=== PATIENT | male | born 1980 | race Hispanic/Latino ===

== ENCOUNTER 2017-01-26 14:47 | Emergency (ER) | payer BC ==
[2017-01-26 15:23] VITALS: BMI 46.5
[2017-01-26 15:28] VITALS: TEMP 98.6
--- NOTE | 2017-01-26 16:16 | ED PDOC ---
Arrival/HPI - General Chief Complaint: Lower Extremity Problem/Injury Time Seen by Provider: 01/26/17 15:34 Historian: Patient - History of Present Illness Narrative History of Present Illness (Text): 01/26/17 16:19 A 36 year old male presents to the emergency department complaining of left foot pain after a mechanical fall three days ago. Patient denies any knee pain, ankle pain or any other complaints at this time. Time/Duration: Other (3 days ) Symptom Onset: Sudden Symptom Course: Unchanged Activities at Onset: Rest Associated Symptoms (Text): none Past Medical History - Provider Review Nursing Documentation Reviewed: Yes - Cardiac Hx Cardiac Disorders: No - Pulmonary Hx Respiratory Disorders: No - Neurological Hx Neurological Disorder: No - HEENT Hx HEENT Disorder: No - Renal Hx Renal Disorder: No - Endocrine/Metabolic Hx Endocrine Disorders: No - Hematological/Oncological Hx Blood Disorders: No - Integumentary Hx Dermatological Disorder: No - Musculoskeletal/Rheumatological Hx Musculoskeletal Disorders: No - Gastrointestinal Hx Gastrointestinal Disorders: Yes Hx Gastroesophageal Reflux: Yes - Genitourinary/Gynecological Hx Genitourinary Disorders: No - Psychiatric Hx Psychophysiologic Disorder: Yes Hx Anxiety: Yes Hx Depression: Yes Hx Substance Use: No - Anesthesia Hx Anesthesia: No Hx Anesthesia Reactions: No Family/Social History - Physician Review Nursing Documentation Reviewed: Yes Family/Social History: No Known Family HX Smoking Status: Heavy Smoker > 10 Cigarettes Daily Hx Alcohol Use: Yes Frequency of alcohol use: Socially Hx Substance Use: No Allergies/Home Meds Allergies/Adverse Reactions: Allergies No Known Allergies Allergy (Verified 01/26/17 15:23) Home Medications: Home Meds Medication Instructions Recorded Confirmed Alprazolam [Xanax] 0.5 mg PO PRN PRN 01/26/17 01/26/17 buPROPion [Wellbutrin] 150 mg PO BID 01/26/17 01/26/17 Review of Systems - Physician Review All systems were reviewed & negative as marked: Yes Physical Exam - Physical Exam Narrative Physical Exam (Text): 01/26/17 16:16- Review of Systems Constitutional: Normal. absent: Fatigue, Weight Change, Fevers Eyes: Normal ENT: Normal Respiratory: Normal absent: SOB, Cough, Sputum Cardiovascular: Normal absent: Chest pain, Palpitations, Syncope Gastrointestinal: Normal absent: Abdominal pain, Diarrhea, Nausea, Vomiting Genitourinary: Normal. absent: Dysuria, Frequency, Hematuria Musculoskeletal: left foot pain absent: knee pain, ankle pain, Arthralgias, Back Pain, Neck Pain Skin: Normal Neurological: Normal absent: Focal Weakness Endocrine: Normal Hemo/Lymphatic: Normal Psychiatric: Normal - Physical exam Patient appears age appropriate, speaking full sentences without difficulty - Systems Exam Head: Present: Atraumatic, Normocephalic Pupils: Present: PERRL Extraocular Muscles: Present: EOMI Conjunctiva: Present: Normal Mouth: Present: Moist Mucous Membranes Neck: Present: Normal Range of Motion. No: MIDLINE TENDERNESS, Paraspinal Tenderness Respiratory/Chest: Present: Clear to Auscultation, Good Air Exchange. No: Respiratory Distress, Accessory Muscle Use, Tachypnic Cardiovascular: Present: tachycardic, Peripheral Pulses Present. No: Murmurs Abdomen: Present: Normal Bowel Sounds, No: Tenderness, Peritoneal Signs, Rebound, Guarding, Distention Back: Present: Normal Inspection. No: Midline Tenderness, Paraspinal Tenderness Upper Extremity: Present: Normal Inspection. No: Cyanosis, Edema Lower Extremity: Present: positive pulses, diffuse bruising of left foot, decrease range of motion due to pain, full active and passive range of motion of knee and ankle, neurovascularly intact. Neurological: Present: GCS=15, Speech Normal, cranial nerves II through XII fully intact with no cerebellar abnormality, neuro-sensory fully intact. No focal neurological deficits. Skin: Present: Warm, Dry, Normal Color. No: Rashes Lymphatic: Present: OX3, NI, NC Psychiatric: Present: Alert, Oriented x 3, Normal Insight, Normal Concentration Vital Signs Reviewed: Yes Vital Signs Temp Pulse Resp BP Pulse Ox 01/26/17 18:13 89 18 165/89 H 98 01/26/17 16:34 98 H 18 168/98 H 98 01/26/17 15:27 98.6 F 105 H 20 174/109 H 97 Temperature: Afebrile Blood Pressure: Hypertensive Pulse: Tachycardic Respiratory Rate: Normal Appearance: Positive for: Well-Appearing, Non-Toxic, Comfortable Pain Distress: None Mental Status: Positive for: Alert and Oriented X 3 Medical Decision Making ED Course and Treatment: 01/26/17 16:13 Impression: A 36 year old male after mechanical fall with left foot pain. On physical exam, positive pulses, diffuse bruising of left foot, decrease range of motion due to pain, full active and passive range of motion of knee and ankle, neurovascularly intact. Differential Diagnosis included but are not limited to: sprain vs fracture Plan: -- Radiology of left ankle -- Radiology left foot -- CT lower extremity -- Toradol -- Reassess and disposition Progress Notes: 01/26/17 16:16 Patient is refusing pain medications. 01/26/17 16:48 Xray shows possible lisfranc fx, interpreted by me Case discussed with Dr. Morales in detail. Image sent. He recommended CAT scan, splint and outpatient follow up for reduction and surgery. States no need for immediate surgery due to excessive swelling. 01/26/17 19:04 splint applied distal neurovasc intact crutches and dc instructions provided Pt states he understands to return to the ER right away for new or worsening symptoms or for inability to f/u with PMD or specialist as instructed. Patient states that he fully agrees with and understands discharge instructions. States that he agrees with the plan and disposition. Verbalized and repeated discharge instructions and plan. I have given the patient opportunity to ask any additional questions. - RAD Interpretation Radiology Orders: 01/26/17 15:59 ANKLE LEFT 3 VIEWS ROUTINE [RAD] Stat FOOT LEFT 3 VIEWS ROUTINE [RAD] Stat 01/26/17 16:48 EXT LOWER W/O CONTRAST LEFT [CT] Stat - Medication Orders Current Medication Orders: Discontinued Medications Acetaminophen (Tylenol 325mg Tab) 975 mg PO STAT STA Stop: 01/26/17 16:13 Last Admin: 01/26/17 16:14 Dose: 975 mg Acetaminophen (Tylenol 325mg Tab) Confirm Administered Dose 975 mg .ROUTE .STK- MED ONE Stop: 01/26/17 16:15 Last Admin: 01/26/17 16:24 Dose: Ketorolac Tromethamine (Toradol) 30 mg IM STAT STA Stop: 01/26/17 16:07 Last Admin: 01/26/17 16:12 Dose: Not Given Non-Admin Reason: Patient Refused Ketorolac Tromethamine (Toradol) Confirm Administered Dose 30 mg .ROUTE .STK- MED ONE Stop: 01/26/17 16:09 Last Admin: 01/26/17 16:12 Dose: Not Given Non-Admin Reason: Patient Refused - Scribe Statement The provider has reviewed the documentation as recorded by the Scribe Belqes Irma Provider Ramandeep Attestation: All medical record entries made by the Ramandeep were at my direction and personally dictated by me. I have reviewed the chart and agree that the record accurately reflects my personal performance of the history, physical exam, medical decision making, and the department course for this patient. I have also personally directed, reviewed, and agree with the discharge instructions and disposition. Disposition/Present on Arrival - Present on Arrival Any Indicators Present on Arrival: No History of DVT/PE: No History of Uncontrolled Diabetes: No Urinary Catheter: No History of Decub. Ulcer: No History Surgical Site Infection Following: None - Disposition Have Diagnosis and Disposition been Completed?: Yes Diagnosis: Foot fracture Disposition: HOME/ ROUTINE Disposition Time: 16:48 Patient Plan: Discharge Condition: GOOD Discharge Instructions (ExitCare): Foot Fracture in Adults (ED) Additional Instructions: Please schedule an appointment with an health communications specialist in the next 48 hours. PLEASE RETURN TO THE EMERGENCY DEPARTMENT FOR NEW OR WORSENING SYMPTOMS. RETURN RIGHT AWAY IF YOU CANNOT FOLLOW UP WITH YOUR PRIMARY CARE DOCTOR, CLINIC, OR SPECIALIST IN 1-2 DAYS. Prescriptions: oxyCODONE/Acetaminophen [Percocet 5/325 mg Tab] 1 ea PO BID PRN #6 tab PRN Reason: Pain, Moderate (4-7) Referrals: PCP,NO [Primary Care Provider] - Follow up with primary Sonido Morales DO [Staff Provider] - Follow up with primary
[2017-01-26 16:34] VITALS: RESP 18; O2SAT 98
--- NOTE | 2017-01-26 17:34 | RAD ---
PROCEDURE: Left Foot Radiographs. HISTORY: fx COMPARISON: None. FINDINGS: BONES: There is no acute displaced fracture or bone destruction. There is increased distance between 1st and 2nd metatarsals with mild lateral displacement of the base of the 2nd metatarsal in relation to the middle cuneiform. JOINTS: The joint spaces are preserved. SOFT TISSUES: Normal. OTHER FINDINGS: None. IMPRESSION: No acute displaced fracture. LisFranc injury.
--- NOTE | 2017-01-26 17:36 | RAD ---
PROCEDURE: Left Ankle Radiographs. HISTORY: fx COMPARISON: None FINDINGS: BONES: There is a small ossific density inferior to the medial malleolus. JOINTS: Normal. Ankle mortise maintained. Talar dome intact mild degenerative osteoarthrosis at the tibiotalar joint. Prominent dorsal calcaneal enthesophyte. Also noted is a fairly prominent Stieda process. SOFT TISSUES: Normal. OTHER FINDINGS: There is mild left medial soft tissue swelling. IMPRESSION: Small ossific density inferior to the medial malleolus could represent an acute fracture or accessory ossification center. Please correlate with point tenderness.
[2017-01-26 18:14] VITALS: BP 165/89; PULSE 89
--- NOTE | 2017-01-27 08:53 | CT ---
PROCEDURE: CT left foot HISTORY: foot COMPARISON: Not available TECHNIQUE: 1.25 mm contiguous axial sections were acquired through the left foot. Sagittal and coronal images were reformatted from the axial scan. FINDINGS: There is a Lisfranc ligamentous disruption. There is dorsal and lateral displacement of the base of the 2nd metatarsal relative to the middle cuneiform. There are small avulsion fractures seen at the tarsometatarsal articulations, 2 through 4. There is probable small avulsion fracture of the distal lateral aspect of the cuboid. Small fracture fragments are at both the dorsal and plantar aspect of the tarsal-metatarsal articulation. There is a small avulsion fracture of the plantar base of the 4th metatarsal. There is a small cortical avulsion of the dorsal aspect of the navicular. This is minimally displaced. Incidentally noted is osteoarthritis of the posterior talocalcaneal articulation. There is soft tissue swelling noted predominantly over the dorsal aspect of the foot, most pronounced at the level of the base of the metatarsals. IMPRESSION: Lisfranc ligamentous disruption with multiple small avulsion fractures about the tarsal-metatarsal articulations 2 through 4. Dorsal/lateral displacement of the base of the 2nd metatarsal. Osteoarthritis of posterior talocalcaneal articulation. It Small cortical avulsion, minimally displaced, dorsal aspect of the navicular. Preliminary interpretation of this examination was reported by [facility] at 7:30 p.m. on 01/26/2017. There is concurrence of this report with the preliminary interpretation.
== END 2017-01-26 19:40 | disposition home or self-care (01) ==
LOC: ED 14:47
DX: S92.902A Unspecified fracture of left foot, initial encounter for closed fracture (principal); W01.0XXA Fall on same level from slipping, tripping and stumbling without subsequent striking against object, initial encounter; Y93.89 Activity, other specified; Y92.89 Other specified places as the place of occurrence of the external cause

== ENCOUNTER 2018-09-15 07:07 | Inpatient (IN) | payer BC ==
[2018-09-15 07:13] VITALS: BMI 45.0
[2018-09-15] MEDS ORDERED: Sodium Chloride 0.9% 1,000 ML IV SCH (07:45)
--- NOTE | 2018-09-15 07:55 | ED PDOC ---
Arrival/HPI - General Chief Complaint: Chest Pain Time Seen by Provider: 09/15/18 07:30 Historian: Patient - History of Present Illness Narrative History of Present Illness (Text): 09/15/18 07:30 38 year old male, smoker, with past medical history of hypertension, hyperlipidemia and past surgical history of foot surgery, presents to the ED for evaluation of intermittent right sided chest pain since 1 week. Patient describes a pressure-like throbbing sensation radiating to his right lateral chest wall, on which he sleeps on. Patient informs improvement of symptoms with Advil but denies taking any today. As per patient, his last episode was 2 hours ago, which spontaneously resolved. Patient denies any inducing factors for the pain and states that pain does not always exacerbate with deep inspirations. Patient denies any other associated somatic complaints. Patient denies any fevers, chills, headache, dizziness, shortness of breath, dyspnea on exertion, cough, abdominal pain, nausea, vomiting, diarrhea, back pain, neck pain, or any other complaints. PMD: Dr. Mathews Time/Duration: 1 week Symptom Onset: Gradual Symptom Course: Intermittent Quality: Pressure Activities at Onset: Light Context: Home Past Medical History - Provider Review Nursing Documentation Reviewed: Yes - Cardiac Hx Cardiac Disorders: Yes Hx Hypertension: Yes - Pulmonary Hx Respiratory Disorders: Yes Hx Asthma: Yes - Neurological Hx Neurological Disorder: No - HEENT Hx HEENT Disorder: No - Renal Hx Renal Disorder: No - Endocrine/Metabolic Hx Endocrine Disorders: No - Hematological/Oncological Hx Blood Disorders: No - Integumentary Hx Dermatological Disorder: No - Musculoskeletal/Rheumatological Hx Musculoskeletal Disorders: No - Gastrointestinal Hx Gastrointestinal Disorders: Yes Hx Gastroesophageal Reflux: Yes - Genitourinary/Gynecological Hx Genitourinary Disorders: No - Psychiatric Hx Psychophysiologic Disorder: Yes Hx Anxiety: Yes Hx Substance Use: No - Anesthesia Hx Anesthesia: No Family/Social History - Physician Review Nursing Documentation Reviewed: Yes Family/Social History: Unknown Family HX Smoking Status: Heavy Smoker > 10 Cigarettes Daily Hx Alcohol Use: Yes Hx Substance Use: No Allergies/Home Meds Allergies/Adverse Reactions: Allergies No Known Allergies Allergy (Verified 01/26/17 15:23) Home Medications: Home Meds Medication Instructions Recorded Confirmed Alprazolam [Xanax] 0.5 mg PO PRN PRN 01/26/17 09/15/18 Furosemide [Lasix] 20 mg PO DAILY 09/15/18 09/15/18 Losartan [Cozaar] 25 mg PO DAILY 09/15/18 09/15/18 Metoprolol Succinate XL [Toprol XL] 200 mg PO DAILY 09/15/18 09/15/18 Tamsulosin [Flomax] 0.4 mg PO DAILY 09/15/18 09/15/18 Tolterodine [Detrol LA] 2 mg PO DAILY 09/15/18 09/15/18 amLODIPine [Norvasc] 1 mg PO DAILY 09/15/18 09/15/18 Review of Systems - Physician Review All systems were reviewed & negative as marked: Yes - Review of Systems Constitutional: absent: Fevers Respiratory: absent: SOB Cardiovascular: Chest Pain Gastrointestinal: absent: Abdominal Pain, Diarrhea, Nausea, Vomiting Genitourinary Male: absent: Dysuria Musculoskeletal: absent: Back Pain, Neck Pain Skin: absent: Rash Neurological: absent: Headache, Dizziness Psychiatric: absent: Anxiety Physical Exam Vital Signs Reviewed: Yes Vital Signs Temp Pulse Resp BP Pulse Ox 09/15/18 07:23 97.9 F 110 H 18 163/102 H 97 09/15/18 07:20 97.9 F 110 H 18 163/102 H 97 Temperature: Afebrile Blood Pressure: Hypertensive Pulse: Tachycardic Respiratory Rate: Normal Appearance: Positive for: Well-Appearing, Non-Toxic, Comfortable Pain Distress: None Mental Status: Positive for: Alert and Oriented X 3 - Systems Exam Head: Present: Atraumatic, Normocephalic Pupils: Present: PERRL Extroacular Muscles: Present: EOMI Conjunctiva: Present: Normal Mouth: Present: Moist Mucous Membranes Neck: Present: Normal Range of Motion Respiratory/Chest: Present: Clear to Auscultation, Good Air Exchange. No: Respiratory Distress, Accessory Muscle Use Cardiovascular: Present: Regular Rate and Rhythm, Normal S1, S2. No: Murmurs Abdomen: No: Tenderness, Distention, Peritoneal Signs Back: Present: Normal Inspection Upper Extremity: Present: Normal Inspection. No: Cyanosis, Edema Lower Extremity: Present: Normal Inspection. No: Edema Neurological: Present: GCS=15, CN II-XII Intact, Speech Normal Skin: Present: Warm, Dry, Normal Color. No: Rashes Psychiatric: Present: Alert, Oriented x 3, Normal Insight, Normal Concentration Medical Decision Making ED Course and Treatment: 09/15/18 07:31 Impression: 38 year old male presents to the ED for evaluation of chest pain since 1 week. Non pleuritic chest pain. Afebrile. No friction run or JVD noted on exam. No hx of weakness. No cough, fever, chills or night sweats. No midscapular pain. No abdominal pain. No fall or trauma. No GI or complaints. Pending imaging and labs. No current pain. WELLS: Low pretest Cannot perc out given HR, will Dimer HEART score: Age: 0 RF: 2 Story: 0 Tropp: pend EK Plan: -- EKG -- Labs -- CT Chest -- IV Fluids -- Reassess and disposition Prior Visits: Notes and results from previous visits were reviewed. Progress Notes: 09/15/18 07:20 EKG reviewed, shows sinus tachycardia at 104 bpm, No STEMI. 09/15/18 09:57 CT Chest reviewed by radiologist, shows: Unremarkable CT pulmonary angiogram. No pulmonary embolus. Moderate size right pleural effusion 09/15/18 10:53 Appreciate consult w/ Dr. Rivers: accepts to his service, requesting consult w/ Dr. Elliott and Dr. Moy Rodriguez. Pt in NAD, no respiratory distress, agreeable to plan. - RAD Interpretation Radiology Orders: 09/15/18 07:31 CHEST TWO VIEWS (PA/LAT) [RAD] Stat Back Tender: Radiologist - Medication Orders Current Medication Orders: Sodium Chloride (Sodium Chloride 0.9%) 1,000 mls @ 100 mls/hr IV .Q10H DOUG - Scribe Statement The provider has reviewed the documentation as recorded by the Scribzeynep Faulkner. All medical record entries made by the Emeterioibe were at my direction and personally dictated by me. I have reviewed the chart and agree that the record accurately reflects my personal performance of the history, physical exam, medical decision making, and the department course for this patient. I have also personally directed, reviewed, and agree with the discharge instructions and disposition. Disposition/Present on Arrival - Present on Arrival Any Indicators Present on Arrival: No History of DVT/PE: No History of Uncontrolled Diabetes: No Urinary Catheter: No History of Decub. Ulcer: No History Surgical Site Infection Following: None - Disposition Have Diagnosis and Disposition been Completed?: No Diagnosis: Moderate sized pleural effusion Disposition Time: 10:54 Patient Problems: Current Active Problems Problem Status Onset Moderate sized pleural effusion Acute Condition: STABLE Forms: [employer] (Tuvaluan)
[2018-09-15 08:22] LABS: BASO # 0.03 K/mm3 (0.0-2.0); BASO % 0.2 % (0.0-3.0); EOS # 0.6 (0.0-0.7); EOS % 4.7 % (1.5-5.0); LYMPH # 2.4 (1.2-3.4); LYMPH % 18.6 % (22.0-35.0); MEAN CELL VOLUME 84.7 fl (80.0-105.0); MEAN CORPUSCULAR HGB CONC 34.2 g/dl (31.0-37.0); MEAN PLATELET VOLUME 8.6 fl (7.0-11.0); MONO % 7.6 % (1.0-6.0); RBC 5.17 10^6/uL (3.5-6.1); RED CELL DISTRIBUTION WIDTH 13.7 % (11.5-14.5); WHITE BLOOD COUNT 12.7 10^3/uL (4.5-11.0)
[2018-09-15 08:28] LABS: ALB/GLOB RATIO 1.2 (1.1-1.8); ALBUMIN 4.4 g/dL (3.0-4.8); ALT/SGPT 21 U/L (7-56); AST/SGOT 25 U/L (17-59); BLOOD UREA NITROGEN 11 mg/dL (7-21); CALCIUM 9.9 mg/dL (8.4-10.5); GFR NON-AFRICAN AMERICAN > 60
[2018-09-15 08:39] LABS: TROPONIN I < 0.01 ng/mL
[2018-09-15] MEDS ORDERED: Iohexol 350 MG/100 ML VIAL ONE (08:50)
--- NOTE | 2018-09-15 09:55 | CT ---
Date of service: 09/15/2018 PROCEDURE: CT Chest with contrast (Pulmonary Angiogram) HISTORY: chest, pain elevated dimer COMPARISON: None available. TECHNIQUE: Axial computed tomography images were obtained of the chest in the pulmonary arterial phase of enhancement. Coronal and sagittal reformatted images were created and reviewed. Intravenous contrast dose: 100 cc of Omni 350 Radiation dose: Total exam DLP = 569.78 mGy-cm. This CT exam was performed using one or more of the following dose reduction techniques: Automated exposure control, adjustment of the mA and/or kV according to patient size, and/or use of iterative reconstruction technique. FINDINGS: PULMONARY ARTERIES: Unremarkable. No pulmonary embolism. AORTA: No acute findings. No thoracic aortic aneurysm. No aortic atherosclerotic calcification or mural plaque present. LUNGS: Unremarkable. No nodule, mass or pulmonary consolidation. PLEURAL SPACES: Moderate size right pleural effusion HEART: Unremarkable. No cardiomegaly. No significant pericardial effusion. LYMPH NODES: No lymphadenopathy. BONES, CHEST WALL: Unremarkable. No fracture or destructive lesion OTHER FINDINGS: Unremarkable. IMPRESSION: Unremarkable CT pulmonary angiogram. No pulmonary embolus. Moderate size right pleural effusion
[2018-09-15] MEDS ORDERED: Influenza Vaccine 60 mcg/0.5 mL SYR (4YR UP) IM ONE (14:24)
[2018-09-15] MEDS ORDERED: Pneumococcal 23-Valent Vaccine IM ONE (14:24)
[2018-09-15] MEDS ORDERED: Cefepime (Maxipime) 1 g Inj IVPB SCH (14:45)
--- NOTE | 2018-09-15 15:40 | US ---
HISTORY: Leg pain and swelling. Evaluate for DVT PHYSICIAN(S): Moy Rodriguez MD. TECHNIQUE: Duplex sonography and color-flow Doppler with graded compression were used to evaluate the deep venous systems of both lower extremities. FINDINGS: The visualized deep venous systems of both lower extremities are sonographically normal and compressible. Normal wave forms and augmentation are seen. There is no sonographic evidence for deep venous thrombosis in the visualized segments of both lower extremities. IMPRESSION: No sonographic evidence for deep venous thrombosis in the visualized segments of both lower extremities.
--- NOTE | 2018-09-15 16:06 | CARD ---
APPROVED REPORT Date of service: 09/15/2018 EKG Measurement Heart [id number] <Conclusion> Sinus tachycardia Otherwise normal ECG
[2018-09-15] MEDS: Budesonide 0.25 mg/2 ml Inhal Susp UD IH SCH (19:55)
[2018-09-15] MEDS: Arformoterol 15 mcg/2 ml Inh Sol IH SCH (19:55)
[2018-09-15] MEDS ORDERED: Potassium Chloride 20 mEq ER Tab PO ONE (20:06)
[2018-09-15] MEDS: Cefepime 1gm in NS 100ml 1 GM/100 ML BAG IVPB SCH (21:51)
--- NOTE | 2018-09-15 22:09 | HP ---
DATE OF EXAM: 09/15/2018 CHIEF COMPLAINT: The patient came in because of chest pain and dyspnea. HISTORY OF PRESENT ILLNESS: A 38-year-old with history of hypertension, high cholesterol, morbid obesity, came in with chest pain that has been intermittently and now also dyspnea more when he sleeps on his right side at night. He cannot sleep on his right side because of that. The patient was seen in ER at [facility] for acute upper respiratory infections, who gave him two rounds of antibiotics over the course of 2 to 3 weeks, however, his pain, coughing, and then residual pain and dyspnea was still there. He came into the hospital for evaluation and had been seen by emergency room physicians. Following that, he has initial evaluation for CT angiogram with apart from right pleural effusions and no pulmonary embolism. The patient denied any fever, any chills, any nausea, any vomiting, or any dizziness. The patient is heavy smoker, he smokes 2 packs a day. PAST MEDICAL HISTORY: As I mentioned, hypertension, he does have prostate problem. He does have chronic intermittent anxiety and obesity. SOCIAL HISTORY: The patient as I mentioned is heavy smoker, smokes 2 packs a day. No alcohol. No drugs. FAMILY HISTORY: Noncontributory. His grandmother maybe, grand father or grand parents, one of them has lung cancer. PHYSICAL EXAMINATION GENERAL: The patient sitting in emergency room, seems a little bit anxious and does not seem to be in any respiratory distress. VITAL SIGNS: Temperature is 97.8, heart rate is 82, blood pressure was 152/92, respirations 14, saturating 95% on room air. HEAD AND NECK: Normal. No JVD. No thyromegaly. CHEST: There is diminished breath sound on the right lung. Left lung is normal. CARDIAC: First sounds and second sounds normal. ABDOMEN: Obese, nontender. EXTREMITIES: There is no edema. NEUROLOGIC: Normal. LABORATORY DATA: CT angio shows moderate sized right pleural effusions, no pulmonary embolism. Chemistry; sodium 140, potassium 3.5, chloride 102, bicarb 31, BUN 11, creatinine 0.6. Liver function test is normal. Troponin is negative. BNP is 108. CBC; white count 12.7, hemoglobin 15, hematocrit 43.8, platelet 320. The patient has D-dimer 531. IMPRESSION: This is a 38-year-old male who came in with dyspnea, chest pain right sided, found to have moderate right side pleural effusions, because of history of infection over the course of 2 to 3 weeks with antibiotics. 1. Possibility etiology of right pleural effusions could be parapneumonic pleural effusions, however, having history of smoking we will rule out any underlying malignancy, tapping of his fluid will be helpful in the differential diagnosis. We will admit the patient for observation. We will get pulmonary consult Dr. Elliott, intervention radiology Dr. Moy Rodriguez, and we will also get cardiology Dr. Landry. We will follow up their recommendations. Discussed with the patient in detail. 2. Hypertension. 3. Chronic anxiety. 4. Morbid obesity. PLAN: We will continue and resume all his meds. We replace his potassium and hold off on Lasix. His BNP is normal. We will resume his beta roberto. He received it today, so we will start next day, tomorrow. He does take Toprol-XL 200 mg once a day. I did review the medication with the patient. Matthew Rivers MD
--- NOTE | 2018-09-15 22:22 | CON ---
DATE OF CONSULTATION: 09/15/2018 REFERRING PHYSICIAN: Matthew Rivers MD REASON FOR CONSULTATION: Right-sided pleuritic pain, found to have pleural effusion. HISTORY OF PRESENT ILLNESS: This is a 38-year-old gentleman without any significant past medical history, who is an active smoker. From the last couple of weeks, he has been having URI symptoms, cough and shortness of breath. He has seen his PMD and has been treated as an outpatient with antibiotics. Overnight, he has been having right-sided pleuritic pain, some shortness of breath and cough, came into ER. No hemoptysis, hematemesis, or hematuria. No diarrhea, leg pain or leg swelling. PAST MEDICAL HISTORY: Chronic obstructive lung disease, history of GERD, anxiety disorder. FAMILY HISTORY: No significant cardiopulmonary disease reported. SOCIAL HISTORY: He is an active smoker. Denies any alcohol use. MEDICATIONS: As the outpatient, he had been on Xanax, Lasix, Cozaar, Toprol XL, Flomax, Detrol, Norvasc. ALLERGIES: NONE KNOWN. REVIEW OF SYSTEMS: No headache. Has some rhinitis, right-sided pleuritic pain, short of breath. No nausea, vomiting or diarrhea. No leg pain or leg swelling. Admits to have loud snoring at nighttime, daytime sleepiness. OBJECTIVE: VITAL SIGNS: Temperature is 98, heart rate 76, respiratory rate is 18, blood pressure 157/92, pulse ox 95% on room air. HEENT: Moist mucous membranes. Crowded airway. Mallampati score is 4. NECK: Supple. No JVD. LUNGS: Decreased breath sounds bilaterally. Scattered rhonchi. HEART: S1 and S2. ABDOMEN: Soft, nontender, no organomegaly. EXTREMITIES: Not much edema. NEUROLOGIC: Awake and alert. Follows simple commands. LABORATORY DATA: Hemoglobin 15.0, hematocrit 43.8, WBC 12.7, platelets 320,000. D-dimer was 531. Sodium 140, potassium 3.5, chloride 102, bicarbonate 31, BUN is 11, creatinine 0.6, calcium 9.9. Total bili 0.4, AST 25, ALT 21, alk phos is 91. Troponin less than 0.01. Albumin is 4.4. Has a CT of chest done, which shows no pulmonary embolism, moderate size right pleural effusion. IMPRESSION AND PLAN: Right pleural effusion, probably partially treated pneumonia as outpatient, history of hypertension, may have chronic obstructive lung disease. Case discussed with Dr. Rivers. We will place the patient on cefepime. Sleep apnea precautions. Gastric and DVT prophylaxis. Interventional radiologist consulted for thoracentesis, diagnostic and therapeutic purposes. May need a repeat CAT scan after thoracentesis to assure there is nothing hiding behind the pleural effusion like lung nodule. The patient is asked to stop smoking. We will place him on Nicoderm patch. Add inhaled bronchodilator. We will also do venous Doppler of the lower extremities, echocardiogram. Need to lose weight. Outpatient PFT and sleep study. Thank you and we will follow with you. Sunni Elliott MD
[2018-09-16] MEDS: Cefepime 1gm in NS 100ml 1 GM/100 ML BAG IVPB SCH ×3 (05:58→22:33)
[2018-09-16] MEDS: Budesonide 0.25 mg/2 ml Inhal Susp UD IH SCH ×2 (07:51→20:00)
[2018-09-16] MEDS: Arformoterol 15 mcg/2 ml Inh Sol IH SCH ×2 (07:51→20:00)
--- NOTE | 2018-09-16 08:11 | CP.PCM.CON ---
History of Present Illness - History of Present Illness History of Present Illness: Awake, alert, slight shortness of breath on exertion Reason for consultation: Cardiac evaluation of shortness of breath Brief history of present illness: A 38 year old male morbidly obese who came in to the ER due to shortness of breath and right sided intermittent chest pressure especially when lying on the right side. He was seen by PMD a few days ago due to shortness of breath and upper respiratory infection was given antibiotics. Shortness of breath was not resolved after completing antibiotics. Right sided chest pressure relieved with Advil. He was also claimimg that he was referred to a [facility] due to abnormal EKG and was supposed to have a stress test this weekend. History of hypertension, hyperlipidemia,GERD, anxiety, COPD, past surgical history of foot surgery, currently smokes 2 packs per day, Denies alcoh ol abuse. Seen and examined by me and Dr. Lnadry Review of Systems - Review of Systems All systems: reviewed and no additional remarkable complaints except Review of Systems: as per HPI Past Patient History - Past Social History Smoking Status: Never Smoked - CARDIAC Hx Cardiac Disorders: Yes Hx Hypertension: Yes - PULMONARY Hx Respiratory Disorders: Yes Hx Asthma: Yes - NEUROLOGICAL Hx Neurological Disorder: No - HEENT Hx HEENT Problems: No - RENAL Hx Chronic Kidney Disease: No - ENDOCRINE/METABOLIC Hx Endocrine Disorders: No - HEMATOLOGICAL/ONCOLOGICAL Hx Blood Disorders: No - INTEGUMENTARY Hx Dermatological Problems: No - MUSCULOSKELETAL/RHEUMATOLOGICAL Hx Musculoskeletal Disorders: Yes Hx Falls: Yes Hx Fractures: Yes (FX LEFT FOOT) - GASTROINTESTINAL Hx Gastrointestinal Disorders: Yes Hx Gastroesophageal Reflux: Yes - GENITOURINARY/GYNECOLOGICAL Hx Genitourinary Disorders: No - PSYCHIATRIC Hx Psychophysiologic Disorder: Yes (SMOKES MARIJUANA,OBESITY) Hx Anxiety: Yes Hx Substance Use: No - SURGICAL HISTORY Hx Surgeries: Yes (FRACTURED L FOOT.) - ANESTHESIA Hx Anesthesia: No Meds Allergies/Adverse Reactions: Allergies Allergy/AdvReac Type Severity Reaction Status Date / Time No Known Allergies Allergy Verified 09/15/18 12:05 - Medications Medications: Current Medications Arformoterol Tartrate (Brovana) 15 mcg IH [id number] [facility] Last Admin: 09/16/18 07:51 Dose: 15 mcg Budesonide (Pulmicort Respules) 0.25 mg IH [id number] [facility] Last Admin: 09/16/18 07:51 Dose: 0.25 mg Cefepime HCl (Maxipime 1gm) 1 gm in 100 mls @ 100 mls/hr IVPB Q8 [facility] Last Admin: 09/16/18 05:58 Dose: 100 mls/hr Losartan Potassium (Cozaar) 25 mg PO DAILY [facility] Metoprolol Succinate (Toprol Xl) 200 mg PO DAILY [facility] Nicotine (Nicoderm Cq) 1 patch TD DAILY [facility] Last Admin: 09/15/18 13:50 Dose: 1 patch Pantoprazole Sodium (Protonix Ec Tab) 40 mg PO DAILY [facility] Tolterodine Tartrate (Detrol La) 2 mg PO DAILY [facility] Physical Exam - Constitutional Appears: Non-toxic, No Acute Distress - Head Exam Head Exam: NORMAL INSPECTION, NORMOCEPHALIC - Eye Exam Eye Exam: Normal appearance Pupil Exam: NORMAL ACCOMODATION - ENT Exam ENT Exam: Mucous Membranes Moist - Respiratory Exam Respiratory Exam: Decreased Breath Sounds, NORMAL BREATHING PATTERN - Cardiovascular Exam Cardiovascular Exam: +S1, +S2 - GI/Abdominal Exam GI & Abdominal Exam: Normal Bowel Sounds, Soft - Extremities Exam Extremities exam: Positive for: full ROM - Neurological Exam Neurological exam: Alert, Oriented x3 - Psychiatric Exam Psychiatric exam: Normal Affect, Normal Mood - Skin Skin Exam: Dry, Normal Color, Warm Results - Vital Signs Recent Vital Signs: Last Vital Signs Temp 98.3 F 09/15/18 23:18 Pulse 86 09/16/18 06:47 Resp 20 09/15/18 23:18 BP 190/102 H 09/16/18 06:47 Pulse Ox 97 09/15/18 23:18 - Labs Result Diagrams: 09/15/18 08:05 09/15/18 08:05 Labs: Laboratory Results - last 24 hr 09/15/18 09/15/18 09/15/18 08:05 08:05 08:05 WBC 12.7 H RBC 5.17 Hgb 15.0 Hct 43.8 MCV 84.7 MCH 29.0 MCHC 34.2 RDW 13.7 Plt Count 320 MPV 8.6 Neut % (Auto) 68.9 H Lymph % (Auto) 18.6 L Clinch % (Auto) 7.6 H Eos % (Auto) 4.7 Baso % (Auto) 0.2 Lymph # (Auto) 2.4 Clinch # (Auto) 1.0 H Eos # (Auto) 0.6 Baso # (Auto) 0.03 Absolute Neuts (auto) 8.76 H D-Dimer, Quantitative 531 H Sodium 140 Potassium 3.5 L Chloride 102 Carbon Dioxide 31 Anion Gap 12 BUN 11 Creatinine 0.6 L Est GFR ( Amer) > 60 Est GFR (Non-Af Amer) > 60 Random Glucose 108 Calcium 9.9 Total Bilirubin 0.4 AST 25 ALT 21 Alkaline Phosphatase 91 Troponin I < 0.01 NT-Pro-B Natriuret Pep Total Protein 8.0 Albumin 4.4 Globulin 3.5 Albumin/Globulin Ratio 1.2 Procalcitonin 09/15/18 09/15/18 08:05 08:05 WBC RBC Hgb Hct MCV MCH MCHC RDW Plt Count MPV Neut % (Auto) Lymph % (Auto) Clinch % (Auto) Eos % (Auto) Baso % (Auto) Lymph # (Auto) Clinch # (Auto) Eos # (Auto) Baso # (Auto) Absolute Neuts (auto) D-Dimer, Quantitative Sodium Potassium Chloride Carbon Dioxide Anion Gap BUN Creatinine Est GFR ( Amer) Est GFR (Non-Af Amer) Random Glucose Calcium Total Bilirubin AST ALT Alkaline Phosphatase Troponin I NT-Pro-B Natriuret Pep 108 Total Protein Albumin Globulin Albumin/Globulin Ratio Procalcitonin < 0.05 L Assessment & Plan - Assessment and Plan (Free Text) Assessment: A 38 year old male morbidly obese who came in to the ER due to shortness of breath and right sided intermittent chest pressure especially when lying on the right side. He was seen by PMD a few days ago due to shortness of breath and upper respiratory infection was given antibiotics. Shortness of breath was not resolved after completing antibiotics. Right sided chest pressure relieved with Advil. He was also claimimg that he was referred to a [facility] due to abnormal EKG and was supposed to have a stress test this weekend. History of hypertension, hyperlipidemia,GERD, anxiety, COPD, past surgical history of foot surgery, currently smokes 2 packs per day, Denies alcohol abuse. Right pleuritic pain due to moderate pleural effusion from CT scan. EKG showed sinus tachycardia, normal,no ischemia, Normal troponin and BNP. US of lower extremities negative for DVT. Rule out acute coronary syndrome. Will order echo to evaluate LV function. For stress test tomorrow. No cardiac work up done at [facility]. Uncontrolled blood pressure. Plan: No distress, shortness of breath on exertion, right sided chest discomfort Uncontrolled blood pressure Hydralazine IV 10 mg given For echo today For Stress test in AM NPO post midnight Heart rate controlled On Cozaar 25 mg Daily,Toprol 200 mg daily, Nicoderm patch daily Detrol LA 2 mg daily Continue current medications Continue current treatment Pulmonary on consult TSH,lipid panel and HgbA1c LIfestyle modification Weight reduction Smoking cessation, on Nicotine patch Will follow up Plan and treatment discussed with Dr. Landry Thank you Dr. Rivers for the opportunity of taking care of Alexandre Bansal - Date & Time Date: 09/16/18 Time: 06:50
[2018-09-16] MEDS: Tolterodine 2 mg ER Cap PO SCH (10:25)
[2018-09-16] MEDS: Metoprolol Succinate 100 mg XL Tab PO SCH (10:26)
[2018-09-16] MEDS: Pantoprazole 40 mg EC Tab PO SCH (10:26)
[2018-09-16 11:29] LABS: BLOOD UREA NITROGEN 11 mg/dL (7-21); CALCIUM 9.6 mg/dL (8.4-10.5); GFR NON-AFRICAN AMERICAN > 60; INR 1.21; PARTIAL THROMBOPLASTIN TIME 41.9 Seconds (26.9-38.3); PROTHROMBIN TIME 13.7 SECONDS (9.4-12.5)
--- NOTE | 2018-09-16 15:11 | PN ---
DATE: 09/16/2018 PULMONARY PROGRESS NOTE REFERRING PHYSICIAN: Matthew Rivers MD SUBJECTIVE: He is out of bed to chair. right-sided pleural pain. No cough, no sputum production. No nausea, vomiting or diarrhea. No leg pain or leg swelling. OBJECTIVE GENERAL: No acute distress. VITAL SIGNS: Temperature 98, heart rate is 93, respiratory rate is 20, blood pressure 179/107 and pulse ox 98% on room air. HEENT: Moist mucous membranes. Crowded airway. Mallampati score of 4. NECK: Supple. No JVD. LUNGS: Decreased breath sound in the right base. HEART: S1 and S2. ABDOMEN: Soft and nontender. No organomegaly. EXTREMITIES: No edema. NEUROLOGIC: Awake and alert. Follows simple commands. MEDICATIONS: He is on hydralazine 10 mg every 6 hours p.r.n., Pulmicort inhaled twice a day, Cozaar 25 mg daily, Detrol LA 2 mg daily, cefepime 1 g IV every 8 hours, Nicoderm patch daily, Protonix 40 mg daily and Toprol XL 200 mg daily. LABORATORY DATA: Reviewed. Noted INR 1.21, and PTT is 42. Sodium 140, potassium 4.0, chloride 101, bicarbonate 30, BUN 11, creatinine 0.6, glucose is 97 and calcium is 9.6. Procalcitonin less than 0.05. IMPRESSION AND PLAN: Right pleural effusion, probably parapneumonic, treated outpatient with antibiotics; uncontrolled hypertension; obesity; may have apnea syndrome. Scheduled for thoracentesis for diagnostic and therapeutic purposes. The patient is heavy smoker. We need to make sure there is no malignancy. Also waiting for echocardiogram to assess left ventricular and right ventricular function. Sleep apnea precaution, avoid sedation. Gastric and deep venous thrombosis prophylaxis. Antihypertensive medication is readjusted. Thank you and we will follow with you. Sunni Elliott MD
--- NOTE | 2018-09-16 16:25 | CARD ---
APPROVED REPORT Date of service: 09/16/2018 EXAM: Two-dimensional and M-mode echocardiogram with Doppler and color Doppler. INDICATION LV Function:SystolicDiastolic 2D DIMENSIONS Left Atrium (2D)4.6 (1.6-4.0cm)IVSd1.3 (0.7-1.1cm) LVDd5.5 (3.9-5.9cm)PWd1.6 (0.7-1.1cm) LVDs4.2 (2.5-4.0cm)FS (%) 22.3 % LVEF (%)44.6 (>50%) M-Mode DIMENSIONS Aortic Root3.00 (2.2-3.7cm)Aortic Cusp Exc.2.20 (1.5-2.0cm) Aortic Valve AoV Peak Qbcasmsn041.0cm/Akua Peak GR.15mmHg Tricuspid Valve TR Peak [id number] [id number] Peak Gr.11mmHg [id number] LEFT VENTRICLE The left ventricle is normal size. There is mild to moderate concentric left ventricular hypertrophy. The systolic function is mildly impaired to low normal EF-45-50% There is borderline global hypokinesis of the left ventricle. Transmitral Doppler flow pattern is Grade III-reversible restrictive diastolic dysfunction. No left ventricle thrombus noted on this study. There is no ventricular septal defect visualized. There is no left ventricular aneurysm. There is no mass noted in the left ventricle. RIGHT VENTRICLE The right ventricle is normal size. There is normal right ventricular wall thickness. The right ventricular systolic function is normal. ATRIA The left atrium is mildly dilated. The right atrium size is normal. The interatrial septum is intact with no evidence for an atrial septal defect. AORTIC VALVE The aortic valve is thickened but opens well. No aortic regurgitation is present. There is no aortic valvular stenosis. There is no aortic valvular vegetation. MITRAL VALVE The mitral valve is thickened but opens well. Mitral regurgitation is trace to mild. There is no mitral valve stenosis. There is no evidence of mitral valve prolapse. TRICUSPID VALVE The tricuspid valve leaflets are thickened , but open well. There is trace tricuspid regurgitation.RVSP-21 mmof hg. There is no tricuspid valve stenosis. There is no tricuspid valve prolapse or vegetation. PULMONIC VALVE The pulmonary valve is normal in structure. There is no pulmonic valvular regurgitation. There is no pulmonic valvular stenosis. GREAT VESSELS The aortic root is normal in size. The ascending aorta is normal in size. The pulmonary artery is normal. The IVC is normal in size and collapses >50% with inspiration. PERICARDIAL EFFUSION There is no pericardial effusion. <Conclusion> The left ventricle is normal size. There is mild to moderate concentric left ventricular hypertrophy. The systolic function is mildly impaired to low normal EF-45-50% Mitral regurgitation is trace to mild. There is trace tricuspid regurgitation.RVSP-21 mmof hg. The IVC is normal in size and collapses >50% with inspiration. There is no pericardial effusion. No vegetation or thrombus noted.
[2018-09-17] MEDS: Cefepime 1gm in NS 100ml 1 GM/100 ML BAG IVPB SCH ×2 (05:12→17:33)
--- NOTE | 2018-09-17 07:15 | CP.PCM.PN ---
Subjective - Date & Time of Evaluation Date of Evaluation: 09/17/18 Time of Evaluation: 06:35 - Subjective Subjective: Awake, alert, pleuritic pain when taking deep breaths Reason for consultation and follow up: Cardiac evaluation of shortness of breath and right sided intermittent chest pressure especially when lying on the right side. History of hypertension, hyperlipidemia,GERD, anxiety, COPD, currently smokes 2 packs per day Seen and examined by me and Dr. Landry Objective - Vital Signs/Intake and Output Vital Signs (last 24 hours): Temp Pulse Resp BP Pulse Ox 98.1 F 72 20 176/86 H 93 L 09/16/18 23:20 09/17/18 05:12 09/16/18 23:20 09/17/18 05:12 09/16/18 23:20 Intake and Output: 09/17/18 09/17/18 06:59 18:59 Intake Total 720 Balance 720 - Medications Medications: Current Medications Arformoterol Tartrate (Brovana) 15 mcg IH [id number] [facility] Last Admin: 09/16/18 20:00 Dose: Not Given Budesonide (Pulmicort Respules) 0.25 mg IH [id number] [facility] Last Admin: 09/16/18 20:00 Dose: Not Given Chlorthalidone (Hygroton) 50 mg PO DAILY [facility] Hydralazine HCl (Apresoline) 10 mg IVP Q6 PRN PRN Reason: hypertension SBP above 170 Last Admin: 09/17/18 05:12 Dose: 10 mg Cefepime HCl (Maxipime 1gm) 1 gm in 100 mls @ 100 mls/hr IVPB Q8 [facility] Last Admin: 09/17/18 05:12 Dose: 100 mls/hr Losartan Potassium (Cozaar) 50 mg PO DAILY [facility] Metoprolol Succinate (Toprol Xl) 200 mg PO DAILY [facility] Last Admin: 09/16/18 10:26 Dose: 200 mg Nicotine (Nicoderm Cq) 1 patch TD DAILY [facility] Last Admin: 09/16/18 10:25 Dose: 1 patch Pantoprazole Sodium (Protonix Ec Tab) 40 mg PO DAILY [facility] Last Admin: 09/16/18 10:26 Dose: 40 mg Tolterodine Tartrate (Detrol La) 2 mg PO DAILY [facility] Last Admin: 09/16/18 10:25 Dose: 2 mg - Labs Labs: 09/15/18 08:05 09/16/18 11:10 PT 13.7 SECONDS (9.4-12.5) H 09/16/18 11:10 INR 1.21 09/16/18 11:10 APTT 41.9 Seconds (26.9-38.3) H 09/16/18 11:10 - Constitutional Appears: Non-toxic, No Acute Distress - Head Exam Head Exam: NORMAL INSPECTION, NORMOCEPHALIC - Eye Exam Eye Exam: Normal appearance Pupil Exam: NORMAL ACCOMODATION - ENT Exam ENT Exam: Mucous Membranes Moist, Normal Exam - Respiratory Exam Respiratory Exam: Decreased Breath Sounds, Clear to Ausculation Bilateral, NORMAL BREATHING PATTERN - Cardiovascular Exam Cardiovascular Exam: +S1, +S2 Additional comments: right side pleuritic pain when taking deep breaths - GI/Abdominal Exam GI & Abdominal Exam: Soft, Normal Bowel Sounds - Extremities Exam Extremities Exam: Full ROM - Neurological Exam Neurological Exam: Alert, Awake, Oriented x3 - Psychiatric Exam Psychiatric exam: Normal Affect, Normal Mood - Skin Skin Exam: Dry, Normal Color, Warm Assessment and Plan - Assessment and Plan (Free Text) Assessment: A 38 year old male morbidly obese who came in to the ER due to shortness of breath and right sided intermittent chest pressure especially when lying on the right side. He was seen by PMD a few days ago due to shortness of breath and upper respiratory infection was given antibiotics. Shortness of breath was not resolved after completing antibiotics. Right sided chest pressure relieved with Advil. He was also claimimg that he was referred to a [facility] due to abnormal EKG and was supposed to have a stress test this weekend. History of hypertension, hyperlipidemia,GERD, anxiety, COPD, past surgical history of foot surgery, currently smokes 2 packs per day. Admits to social drinking occasionally. Right pleuritic pain due to moderate pleural effusion from CT scan. EKG showed sinus tachycardia, normal,no ischemia, Normal troponin and BNP. US of lower extremities negative for DVT. Rule out acute coronary syndrome. Moderate right pleural effusion. Atypical chest pain, Uncontrolled blood pressure. Given multiple risk factors for coronary artery disease, echocardio gram to evaluate LV function. Echo done and showed LVEF 45-50%, mild MR, trace TR, RVSP 21 mmHg. For stress test today. For possible right pleural thoracentesis today for diagnostic and rule out malignancy. Plan: Echo done and showed LVEF 45-50%, mild MR, trace TR, RVSP 21 mmHg. For stress test today For possible right pleural thoracentesis today. No distress, denies shortness of breath Controlled blood pressure Heart rate controlled On Cozaar 25 mg Daily,Toprol 200 mg daily, Nicoderm patch daily Detrol LA 2 mg daily Smoking cessation, on Nicotine patch Continue current medications Continue current treatment Pulmonary on consult Lifestyle modification Weight reduction Will follow up Plan and treatment discussed with Dr. Landry
[2018-09-17] MEDS: Budesonide 0.25 mg/2 ml Inhal Susp UD IH SCH ×2 (07:48→20:00)
[2018-09-17] MEDS: Arformoterol 15 mcg/2 ml Inh Sol IH SCH ×2 (07:48→20:00)
[2018-09-17 07:54] LABS: BLOOD UREA NITROGEN 10 mg/dL (7-21); CALCIUM 9.8 mg/dL (8.4-10.5); GFR NON-AFRICAN AMERICAN > 60; HDL CHOLESTEROL 34 mg/dL (29-60)
[2018-09-17] MEDS ORDERED: Aminophylline 25 mg/ml Inj ONE (08:02)
[2018-09-17 08:05] LABS: LDL CHOLESTEROL 103 mg/dL (0-129)
[2018-09-17 10:36] LABS: HEMOGLOBIN 15.8 g/dL (14.0-18.0); MEAN CELL VOLUME 83.1 fl (80.0-105.0); MEAN PLATELET VOLUME 9.2 fl (7.0-11.0); RBC 5.44 10^6/uL (3.5-6.1); RED CELL DISTRIBUTION WIDTH 14.3 % (11.5-14.5); WHITE BLOOD COUNT 14.1 10^3/uL (4.5-11.0)
[2018-09-17] MEDS: Pantoprazole 40 mg EC Tab PO SCH (11:10)
[2018-09-17] MEDS: Tolterodine 2 mg ER Cap PO SCH (11:10)
[2018-09-17] MEDS: Metoprolol Succinate 100 mg XL Tab PO SCH (11:10)
--- NOTE | 2018-09-17 12:40 | PN ---
DATE: 09/17/2018 PULMONARY PROGRESS NOTE REFERRING PHYSICIAN: Matthew Rivers MD. SUBJECTIVE: The patient seen sitting up in wheelchair after having stress test done. The patient reports still having pleuritic pain to the right side. No shortness of breath. He states the cough is better. No headache, rhinitis, abdominal pain, nausea, vomiting, diarrhea, leg pain or leg swelling reported. OBJECTIVE: GENERAL: No acute distress. VITAL SIGNS: Blood pressure 165/94, pulse 90, temperature 98, oxygen saturation 94% on room air. HEENT: Moist mucous membranes. Mallampati score of 4. Crowded airway. NECK: Supple. No JVD. LUNGS: Decreased breath sounds on the right. CARDIOVASCULAR: S1, S2. ABDOMEN: Soft, nontender. No distention. No organomegaly. EXTREMITIES: No bilateral lower extremity edema. NEUROLOGIC: Awake, alert, verbal. Follows commands. MEDICATIONS: Reviewed. Brovana 15 mcg every 12 hours, Pulmicort 0.25 mg every 12 hours, cefepime 1 g every 8 hours, chlorthalidone 15 mg daily, hydralazine 10 mg IV push every 6 hours p.r.n., Cozaar 15 mg daily, Toprol-XL 200 mg daily, nicotine patch transdermally daily, Protonix 40 mg daily, Detrol LA 2 mg daily. LABORATORY DATA: Reviewed. WBC 14.1, RBC 5.44, hemoglobin 15.8, hematocrit 45.2, platelets 367. Sodium 140, potassium 3.6, chloride 105, carbon dioxide 26, anion gap 13, BUN 10, creatinine 0.6, GFR greater than 60, random glucose 126, calcium 9.8, phosphorus 3.3, magnesium 1.9. Triglycerides 215, cholesterol 175, LDL cholesterol 103, HDL cholesterol 34. TSH 3.86. Myocardial stress test report pending. Echocardiogram shows [id number] concentric left ventricular hypertrophy, ejection fraction 45 to 50%, mitral regurgitation trace to mild, trace tricuspid regurgitation, RVSP 21, no pericardial effusion, no vegetation or thrombus noted. IMPRESSION AND PLAN: Right pleural effusion, partially treated community-acquired pneumonia. The patient was treated outpatient with antibiotics before coming to ER; Echo showing some cardiomyopathy, uncontrolled hypertension; obesity; obstructive sleep apnea syndrome. The patient to have thoracentesis for diagnostic and therapeutic purposes. The patient is a heavy smoker. Need to rule out malignancy. Will need follow up CT scan after thoracentesis. Sleep apnea precaution, avoid nocturnal sedation. Gastric prophylaxis. Sequential compression devices to bilateral lower extremities for deep venous thrombosis prophylaxis. Cardiology followup. Continue antibiotic therapy at this time. This patient seen and examined with Dr. Elliott. Discussed assessment and plan as described above. This patient seen and examined with Foster Anderson, nurse practitioner. Discussed assessment and plan as described above. Thank you for this consult. We will follow with you. Foster Anderson APN Sunni Elliott MD IS[facility]
[2018-09-17] MEDS: Naproxen 550 mg Tab PO SCH ×2 (13:00→17:31)
--- NOTE | 2018-09-17 15:29 | CARD ---
APPROVED REPORT Date of service: 09/17/2018 Protocol: LEXISCAN Test Type: Lexiscan Sestamibi Stress Test Attending Physician: Dr. Sunni Estrella Referring Physician: Dr. Matthew Rivers Test Indications: Chest Pain, r/o CAD Height:5 ft 10 in Weight:314lbs Medications: brovanna, pulmicort, maxipime apresoline, cozaar, toprol, nicotine pat protonix, detrol Medical History: 38 year old male with h/o htn, asthma and GERD Target HR: 180 bpm Resting ECG: RSR. Resting Heart Rate: 87 bpm Resting Blood Pressure: 172/104mmHg Submaximum (85%): 153 bpm PROCEDURE Pharmacologic stress testing was performed using 0.4mg per 5ml of regadenoson given intravenously over 7-10 seconds. POST EXERCISE Reason for Termination: Protocol completed Target HR: No Max HR: 94 bpm 61% of Maximum Predicted HR: 180 bpm Exercise duration: 00:31 min:sec, 0 Stage Exercise capacity: 1.0METs Max Blood Pressure: 172/104mmHg Blood Pressure response to exercise: resting hypertension - appropriate response Heart Rate response to exercise: appropriate Chest Pain: No, none Angina index: 0 Arrhythmia: No, none ST Change: No, none Deviation: 0 mm INTERPRETATION Stress EKG Conclusion: IV LEXISCAN NUCLEAR STRESS TEST NEGATIVE FOR CHEST PAIN AND NEGATIVE FOR ST-T CHANGES. NUCLEAR SCAN REPORT PENDING. Signed by Sunni Estrella Electronically Approved: 09/17/2018 09:44:43 EXAM: Myocardial Perfusion REST/STRESS Stress Test Type: Pharmacologic Imaging Protocol The imaging protocol used to acquire images was Rest Tc-99m/stress Tc-99m 1 day Rest Spect myocardial perfusion imaging was performed in supine position 50 minutes following the injection of 10.3 mCi of Tc-99 Myoview. At peak stress, the patient was injected intravenously with 30.4mCi of Tc-99 tetrofosmin after an infusion time of 0 minutes and 10 seconds. Gated Stress Spect was performed 70 minutes after intravenous Tc-99 Myoview injection. The images were gated to evaluate regional wall motion and calculate ventricular ejection fraction.Images were reconstructed using backfilter projection method in short horizontal and verticle long axis. Spect slices were generated. LV Perfusion The quality of the study is good. The left ventricle is moderatley enlarged in size with thickened myocardium. The right ventricle is unremarkable. The lung uptake is within normal limits. The distribution of tracer reveals mildly heterogeneous uptake with moderately decreased perfusion in the apical and inferior vigil on the stress study. The remainder of the LV myocardium is unremarkable. The rest myocardial perfusion study shows no significant change. Wall Motion Wall motion study shows diffuse hypokinesis of the left ventricle. LVEF = 43%. Conclusion 1. Abnormal SPECT myocardial perfusion study. 2. Heterogeneous activities and fixed, apical and inferior defects are most likely due to soft tissue/ diaphragmatic attenuation. 3. Mild LV dysfunction with diffuse hypokinesis. 4. The above findings are suggestive of cardiomyopathy.
[2018-09-17 16:03] LABS: BODY FLUID TYPE PLEURAL
--- NOTE | 2018-09-17 16:20 | RAD ---
Date of service: 09/17/2018 HISTORY: s/p thoracenthesis COMPARISON: No prior. FINDINGS: LUNGS: No active pulmonary disease. PLEURA: No significant pleural effusion identified, no pneumothorax apparent. CARDIOVASCULAR: No aortic atherosclerotic calcification present. Normal cardiac size. No pulmonary vascular congestion. OSSEOUS STRUCTURES: No significant abnormalities. VISUALIZED UPPER ABDOMEN: Normal. OTHER FINDINGS: None. IMPRESSION: No active disease.
[2018-09-17] MEDS ORDERED: Potassium Chloride 20 mEq ER Tab PO ONE (16:25)
[2018-09-17 17:02] LABS: BF GROSS APPEARANCE BLOODY (CLEAR)
[2018-09-17 20:35] LABS: BODY FLUID TOTAL COUNT 100 (0-0)
--- NOTE | 2018-09-18 00:20 | OP ---
PROCEDURE DATE: 09/17/2018 PROCEDURE: Right-sided thoracentesis under ultrasound guidance. INDICATION: Moderate pleural effusion of unclear etiology. DESCRIPTION OF PROCEDURE: After obtaining informed consent, operational area was sterilized. Time-out performed. Maximum barrier precautions used. The best pocket of fluid identified under real-time ultrasound guidance. Catheter over the needle was inserted, and then the needle was removed while catheter was advanced. Then, 1.2 L of serosanguineous fluid was removed. Fluid /Labs were sent for analysis. Catheter subsequently was removed as well. Sterile dressing applied. Air tight gauzes were placed. Chest x-ray confirmed no pneumothorax and lungs expanded. The patient tolerated the procedure well. Blood loss is minimal. Akbar Mcgee MD [facility]
--- NOTE | 2018-09-18 00:44 | CON ---
DATE: 09/17/2018 HISTORY OF PRESENT ILLNESS: The patient is a 38-year-old gentleman with history of hypertension, high cholesterol, morbid obesity, who came in with chest pain which appears to be noncardiac in origin as it changes in intensity and location during movement and respiration. The pain, however, was severe enough to seek medical attention in the hospital. He also reports that his sleep was significantly interrupted due to this pain. Of note, the patient recently had acute upper respiratory infection and was through two rounds of antibiotics over the course of 2-3 weeks. His pain, however, did not go away and persisted. Upon admission to ER, the patient had undergone chest CT which did not reveal pulmonary embolism, however, did show moderate size right pleural effusion. Subsequent lower extremity ultrasound did not reveal PE; however, echocardiogram was significant for signs suggestive of diastolic CHF and mild systolic left ventricular dysfunction with ejection fraction 44%. He did, however, have normal RVSP and no pulmonary hypertension was suspected. Left atrium was also dilated. As the patient is a smoker and of fairly young age, the etiology of right pleural effusion was sought and thoracentesis was ordered. This consult was placed by primary team (Dr. Rivers and Dr. Elliott) for the thoracentesis. No fever, no chills, no sweats. No nausea, no vomiting, no diarrhea, no constipation. PAST MEDICAL HISTORY: Hypertension, hyperlipidemia, morbid obesity, newly found diastolic and systolic left ventricular dysfunction. SOCIAL HISTORY: No alcohol or illicit drug abuse. However, the patient is a heavy smoker and smokes about two packs a day. FAMILY HISTORY: Noncontributory. PHYSICAL EXAMINATION: VITAL SIGNS: Heart rate 87, blood pressure 153/93, respiratory rate 18, oxygen saturation 94% on room air. HEENT: Head and neck atraumatic. LUNGS: Clear to auscultation bilaterally. Decreased breath sounds in the right base. HEART: Regular rate and rhythm. S1, S2 distant. ABDOMEN: Soft, nontender, nondistended. MUSCULOSKELETAL: Trace bilateral pedal and ankle edema. NEUROLOGIC: The patient moves all extremities spontaneously. SKIN: Moist. PSYCHIATRIC: The patient is alert, awake and oriented x3. LABORATORY DATA: WBC 12.7, hemoglobin 15, platelet count 320, eosinophils 4.7. INR 1.21, PT 13.7, PTT 41.9. Sodium 140, potassium 4, chloride 101, carbon dioxide 30, BUN 11, creatinine 0.6, glucose 97. Hemoglobin A1c 5.4. . Procalcitonin less than 0.05. TSH 3.86. Total cholesterol 175, LDL cholesterol 103, HDL cholesterol 34, triglycerides 215. ProBNP 108. AST 25, ALT 21, total bilirubin 0.4. MEDICATIONS: Brovana, Pulmicort, cefepime, chlorthalidone, hydralazine, Cozaar, metoprolol, Naproxen, nicotine patch, Protonix, Detrol. CAT scan of the chest, as was mentioned above, showed unremarkable CT pulmonary angiogram, no pulmonary embolus but moderate size right pleural effusion. Echocardiogram, official report, left ventricle is normal size. There is mild to moderate concentric left ventricular hypertrophy. Systolic function is mildly impaired to low normal, ejection fraction 45-50%. There is trace to mild mitral regurgitation. The IVC is normal size and is collapsible at more than 50%. RVSP 21. Extremity ultrasound showed no sonographic evidence for deep venous thrombosis in the visualized segments of both lower extremities. Myocardial stress test today showed appropriate heart rate response to stress, appropriate blood pressure response to stress, no ST changes on stress. ASSESSMENT AND PLAN: This is a 38-year-old gentleman with newly found diastolic and systolic left ventricular dysfunction, who recently had upper respiratory tract infection, most likely viral, and who presented with some chest pain of what appears to be not a cardiac origin. Myocardial stress test appears to be unremarkable and does not suggest myocardial ischemia. The patient did have right moderate pleural effusion of unclear etiology and this consult was placed to request thoracentesis. No contraindication to thoracentesis present. Thoracentesis was performed and 1.2 liters of serosanguineous fluid removed. The patient tolerated the procedure well. Following labs were sent for analysis including pleural protein, albumin cell count, LDH, pH, glucose, ADA, cytology, culture. Chest x-ray is pending. The patient tolerated the procedure well. Please be referred to procedure note. Care of the patient at this point will be transferred back to Dr. Elliott who is the patient's primary regulatory agency director and Dr. Rivers who is the patient's primary medical doctor. Akbar Mcgee MD [facility]
--- NOTE | 2018-09-18 07:18 | CP.PCM.PN ---
Subjective - Date & Time of Evaluation Date of Evaluation: 09/18/18 Time of Evaluation: 06:50 - Subjective Subjective: Awake, alert, no distress, denies pain Reason for consultation and follow up: Cardiac evaluation of shortness of breath and right sided intermittent chest pressure especially when lying on the right side. History of hypertension, hyperlipidemia,GERD, anxiety, COPD, currently smokes 2 packs per day, post right thoracenthesis Seen and examined by me and Dr. Landry Objective - Vital Signs/Intake and Output Vital Signs (last 24 hours): Temp Pulse Resp BP Pulse Ox 99.3 F 90 18 163/84 H 96 09/17/18 14:00 09/17/18 18:00 09/17/18 18:00 09/17/18 18:00 09/17/18 18:00 Intake and Output: 09/18/18 09/18/18 06:59 18:59 Intake Total 1200 Balance 1200 - Medications Medications: Current Medications Arformoterol Tartrate (Brovana) 15 mcg IH [id number] [facility] Last Admin: 09/17/18 20:00 Dose: 15 mcg Budesonide (Pulmicort Respules) 0.25 mg IH [id number] [facility] Last Admin: 09/17/18 20:00 Dose: 0.25 mg Chlorthalidone (Hygroton) 50 mg PO DAILY [facility] Last Admin: 09/17/18 11:10 Dose: 50 mg Hydralazine HCl (Apresoline) 10 mg IVP Q6 PRN PRN Reason: hypertension SBP above 170 Last Admin: 09/17/18 05:12 Dose: 10 mg Cefepime HCl (Maxipime 1gm) 1 gm in 100 mls @ 100 mls/hr IVPB Q8 [facility] Last Admin: 09/18/18 00:00 Dose: 100 mls/hr Losartan Potassium (Cozaar) 50 mg PO DAILY [facility] Last Admin: 09/17/18 11:11 Dose: 50 mg Metoprolol Succinate (Toprol Xl) 200 mg PO DAILY [facility] Last Admin: 09/17/18 11:10 Dose: 200 mg Naproxen (Anaprox Ds) 550 mg PO BID [facility] Last Admin: 09/17/18 17:31 Dose: 550 mg Nicotine (Nicoderm Cq) 1 patch TD DAILY [facility] Last Admin: 09/17/18 11:11 Dose: 1 patch Pantoprazole Sodium (Protonix Ec Tab) 40 mg PO DAILY [facility] Last Admin: 09/17/18 11:10 Dose: 40 mg Tolterodine Tartrate (Detrol La) 2 mg PO DAILY [facility] Last Admin: 09/17/18 11:10 Dose: 2 mg - Labs Labs: 09/17/18 10:20 09/17/18 07:00 PT 13.7 SECONDS (9.4-12.5) H 09/16/18 11:10 INR 1.21 09/16/18 11:10 APTT 41.9 Seconds (26.9-38.3) H 09/16/18 11:10 - Constitutional Appears: Non-toxic, No Acute Distress - Head Exam Head Exam: NORMAL INSPECTION, NORMOCEPHALIC - Eye Exam Eye Exam: Normal appearance Pupil Exam: NORMAL ACCOMODATION - ENT Exam ENT Exam: Mucous Membranes Moist, Normal Exam - Respiratory Exam Respiratory Exam: Decreased Breath Sounds, NORMAL BREATHING PATTERN - Cardiovascular Exam Cardiovascular Exam: +S1, +S2 - GI/Abdominal Exam GI & Abdominal Exam: Soft, Normal Bowel Sounds - Extremities Exam Extremities Exam: Full ROM, Normal Capillary Refill - Neurological Exam Neurological Exam: Alert, Awake, Oriented x3 - Psychiatric Exam Psychiatric exam: Normal Affect, Normal Mood - Skin Skin Exam: Dry, Normal Color, Warm Assessment and Plan - Assessment and Plan (Free Text) Assessment: A 38 year old male morbidly obese who came in to the ER due to shortness of breath and right sided intermittent chest pressure especially when lying on the right side. He was seen by PMD a few days ago due to shortness of breath and upper respiratory infection was given antibiotics. Shortness of breath was not r esolved after completing antibiotics. Right sided chest pressure relieved with Advil. He was also claimimg that he was referred to a [employer] due to abnormal EKG and was supposed to have a stress test this weekend. History of hypertension, hyperlipidemia,GERD, anxiety, COPD, past surgical history of foot surgery, currently smokes 2 packs per day. Admits to social drinking occasionally. Right pleuritic pain due to moderate pleural effusion from CT scan. EKG showed sinus tachycardia, normal,no ischemia, Normal troponin and BNP. US of lower extremities negative for DVT. Rule out acute coronary syndrome. Moderate right pleural effusion. Atypical chest pain, Uncontrolled blood pressure. Given multiple risk factors for coronary artery disease, echocardiogram to evaluate LV function. Echo done and showed LVEF 45-50%, mild MR, trace TR, RVSP 21 mmHg. Post right pleural thoracentesis with 1.2 /liters of serosanguinous fluid taken out. Stress test done- LVEF 43% heterogenous activities and fixed, apical and inferior defects suggestive of cardiomyopathy. Symptoms improved. Recommend cardiac catheterization to rule out coronary artery disease for low EF. Can be done as out patient. Plan: No distress, feels okay Stress test done yesterday, no ischemia, LVEF 43%, cardiomyopathy Post right pleural thoracentesis yesterday -1.2 liters of fluid serosanguinous Controlled blood pressure Heart rate controlled On Cozaar 25 mg Daily,Toprol 200 mg daily, Nicoderm patch daily Detrol LA 2 mg daily, Hygroton 50 mg daily Smoking cessation, on Nicotine patch Continue current medications Continue current treatment Pulmonary on consult Lifestyle modification Weight reduction Discharge planning Will follow up Plan and treatment discussed with Dr. Landry
[2018-09-18] MEDS: Budesonide 0.25 mg/2 ml Inhal Susp UD IH SCH ×2 (08:33→19:34)
[2018-09-18] MEDS: Arformoterol 15 mcg/2 ml Inh Sol IH SCH ×2 (08:33→19:34)
[2018-09-18] MEDS: Cefepime 1gm in NS 100ml 1 GM/100 ML BAG IVPB SCH ×4 (09:20→21:25)
[2018-09-18] MEDS ORDERED: Enoxaparin 40 mg Syringe SC SCH (10:00)
--- NOTE | 2018-09-18 10:45 | PN ---
DATE: 09/18/2018 PULMONARY PROGRESS NOTE REFERRING PHYSICIAN: Matthew Rivers MD. SUBJECTIVE: The patient seen, lying in bed, no acute distress. No overnight events reported. The patient had right-sided thoracentesis under ultrasound guidance done yesterday where 1.2 liters of serosanguineous fluid was removed and sent for analysis. This morning, the patient reports that feeling better, states that his pleuritic pain is a little bit better, but is still there. No headache, rhinitis, cough, shortness of breath, chest pain, abdominal pain, nausea, vomiting, diarrhea, leg pain, leg swelling reported. OBJECTIVE: VITAL SIGNS: Blood pressure 154/97, pulse 75, temperature 98.1, oxygen saturation 95% on room air. GENERAL: No acute distress. HEENT: Moist mucous membranes. Mallampati score of 4. Crowded airway. NECK: Supple. No JVD. LUNGS: Fair airflow bilaterally. CARDIOVASCULAR: S1, S2. ABDOMEN: Soft, nontender. No distention. No organomegaly. No CVA tenderness. EXTREMITIES: No bilateral lower extremity edema. NEUROLOGIC: Awake, alert, verbal, follows commands. MEDICATIONS: Reviewed. Brovana 15 mcg every 12 hours, Pulmicort 0.25 mg inhalation every 12 hours, cefepime 1 g every 8 hours, chlorthalidone 15 mg daily, hydralazine 10 mg IV push every 6 hours p.r.n., Cozaar 50 mg daily, Toprol 200 mg daily, naproxen 550 mg twice a day, nicotine patch transdermal daily, Protonix 40 mg daily, Detrol LA 2 mg daily. LABORATORY DATA: Reviewed. Myocardial stress test shows LV ejection fraction 43%, mild LV dysfunction with diffuse hypokinesis, cardiomyopathy. Chest x-ray status post thoracentesis shows no active disease. IMPRESSION AND PLAN: Right pleural effusion, status post thoracentesis, partially treated community-acquired pneumonia. The patient was treated with antibiotics as outpatient prior to coming to ER, cardiomyopathy, uncontrolled hypertension, obesity, suspected obstructive sleep apnea syndrome. Fluid from thoracentesis pending analysis. Followup CT scan, status post thoracentesis ordered and pending to be done. Sleep apnea precaution, avoid nocturnal sedation. Gastric prophylaxis. Sequential compression devices to bilateral lower extremities for deep venous thrombosis prophylaxis. Will follow up with CT was also unavailable. This patient was seen and examined with Dr. Elliott. Discussed assessment and plan as described above. This patient was seen and examined with Fostre Anderson, nurse practitioner. Discussed assessment and plan as described above. Thank you for this consult. We will follow with you. Foster Anderson APN Sunni Elliott MD
[2018-09-18] MEDS: Metoprolol Succinate 100 mg XL Tab PO SCH (10:49)
[2018-09-18] MEDS: Pantoprazole 40 mg EC Tab PO SCH (10:49)
[2018-09-18] MEDS: Naproxen 550 mg Tab PO SCH ×2 (10:49→18:04)
[2018-09-18] MEDS: Tolterodine 2 mg ER Cap PO SCH (10:49)
--- NOTE | 2018-09-18 11:38 | CT ---
Date of service: 09/18/2018 PROCEDURE: CT Chest without contrast HISTORY: bloody effusion, r/o tumor COMPARISON: Plain radiograph from 09/17/2018. TECHNIQUE: Contiguous axial images were obtained through the chest without intravenous contrast enhancement. Sagittal and coronal reconstructions were performed. Radiation dose: Total exam DLP = 946.05 mGy-cm. This CT exam was performed using one or more of the following dose reduction techniques: Automated exposure control, adjustment of the mA and/or kV according to patient size, and/or use of iterative reconstruction technique. FINDINGS: LUNGS: The lungs are well inflated. There is subsegmental atelectasis in the right lower lobe. No focal consolidation, nodules or mass. There are no endobronchial lesions. MEDIASTINUM: Normal in caliber. No aneurysm. Normal sized heart. Main pulmonary artery unremarkable. No vascular congestion. Subcentimeter mediastinal lymph nodes are likely reactive. No aortic atherosclerotic calcification. PLEURA: There is loculated small right pleural effusion and loculated fluid in the major fissure. There is also small amount of loculated fluid in the minor fissure. BONES: No fracture. No destructive lesion. Mild multilevel degenerative disc disease. UPPER ABDOMEN: Grossly unremarkable. OTHER FINDINGS: There is a small sliding hiatal hernia. IMPRESSION: 1. Small right pleural effusion and loculated fluid in the right major and minor fissures. 2. Subsegmental atelectasis in the right lower lobe. No focal consolidation, mass or nodules.
[2018-09-19] MEDS: Cefepime 1gm in NS 100ml 1 GM/100 ML BAG IVPB SCH ×3 (05:07→21:18)
--- NOTE | 2018-09-19 07:21 | CP.PCM.PN ---
Subjective - Date & Time of Evaluation Date of Evaluation: 09/19/18 Time of Evaluation: 07:05 - Subjective Subjective: Sleeping but easily awaken, alert, no distress, denies chest pain Reason for consultation and follow up: Cardiac evaluation of shortness of breath and right sided intermittent chest pressure especially when lying on the right side. History of hypertension, hyperlipidemia,GERD, anxiety, COPD, currently smokes 2 packs per day, post right thoracenthesis Seen and examined by me and Dr. Landry Objective - Vital Signs/Intake and Output Vital Signs (last 24 hours): Temp Pulse Resp BP Pulse Ox 98.4 F 77 20 153/93 H 97 09/18/18 21:17 09/18/18 21:17 09/18/18 21:17 09/18/18 21:17 09/18/18 21:17 - Medications Medications: Current Medications Arformoterol Tartrate (Brovana) 15 mcg IH [id number] [facility] Last Admin: 09/18/18 19:34 Dose: 15 mcg Aspirin (Ecotrin) 81 mg PO DAILY [facility] Budesonide (Pulmicort Respules) 0.25 mg IH [id number] [facility] Last Admin: 09/18/18 19:34 Dose: 0.25 mg Chlorthalidone (Hygroton) 50 mg PO DAILY [facility] Last Admin: 09/18/18 10:49 Dose: 50 mg Clopidogrel Bisulfate (Plavix) 75 mg PO DAILY [facility] Enoxaparin Sodium (Lovenox) 40 mg SC DAILY [facility]; Protocol Stop: 09/20/18 06:00 Hydralazine HCl (Apresoline) 10 mg IVP Q6 PRN PRN Reason: hypertension SBP above 170 Last Admin: 09/17/18 05:12 Dose: 10 mg Cefepime HCl (Maxipime 1gm) 1 gm in 100 mls @ 100 mls/hr IVPB Q8 [facility] Last Admin: 09/19/18 05:07 Dose: 100 mls/hr Losartan Potassium (Cozaar) 100 mg PO DAILY [facility] Metoprolol Succinate (Toprol Xl) 200 mg PO DAILY [facility] Last Admin: 09/18/18 10:49 Dose: 200 mg Naproxen (Anaprox Ds) 550 mg PO BID [facility] Last Admin: 09/18/18 18:04 Dose: 550 mg Nicotine (Nicoderm Cq) 1 patch TD DAILY [facility] Last Admin: 09/18/18 10:49 Dose: 1 patch Pantoprazole Sodium (Protonix Ec Tab) 40 mg PO DAILY [facility] Last Admin: 09/18/18 10:49 Dose: 40 mg Tolterodine Tartrate (Detrol La) 2 mg PO DAILY [facility] Last Admin: 09/18/18 10:49 Dose: 2 mg - Labs Labs: 09/17/18 10:20 09/17/18 07:00 PT 13.7 SECONDS (9.4-12.5) H 09/16/18 11:10 INR 1.21 09/16/18 11:10 APTT 41.9 Seconds (26.9-38.3) H 09/16/18 11:10 - Constitutional Appears: Non-toxic, No Acute Distress - Head Exam Head Exam: NORMAL INSPECTION, NORMOCEPHALIC - Eye Exam Eye Exam: Normal appearance Pupil Exam: NORMAL ACCOMODATION - ENT Exam ENT Exam: Mucous Membranes Moist, Normal Exam - Respiratory Exam Respiratory Exam: Decreased Breath Sounds, Clear to Ausculation Bilateral, NO RMAL BREATHING PATTERN - Cardiovascular Exam Cardiovascular Exam: +S1, +S2 - GI/Abdominal Exam GI & Abdominal Exam: Soft, Normal Bowel Sounds - Extremities Exam Extremities Exam: Full ROM, Normal Capillary Refill - Neurological Exam Neurological Exam: Alert, Awake, Oriented x3 - Psychiatric Exam Psychiatric exam: Normal Affect, Normal Mood - Skin Skin Exam: Dry, Normal Color, Warm Assessment and Plan - Assessment and Plan (Free Text) Assessment: A 38 year old male morbidly obese who came in to the ER due to shortness of breath and right sided intermittent chest pressure especially when lying on the right side. He was seen by PMD a few days ago due to shortness of breath and upper respiratory infection was given antibiotics. Shortness of breath was not resolved after completing antibiotics. Right sided chest pressure relieved with Advil. He was also claimimg that he was referred to a [employer] due to abnormal EKG and was supposed to have a stress test this weekend. History of hypertension, hyperlipidemia,GERD, anxiety, COPD, past surgical history of foot surgery, currently smokes 2 packs per day. Admits to social drinking occasionally. Right pleuritic pain due to moderate pleural effusion from CT scan. EKG showed sinus tachycardia, normal,no ischemia, Normal troponin and BNP. US of lower extremities negative for DVT. Rule out acute coronary syndrome. Moderate right pleural effusion. Atypical chest pain, Uncontrolled blood pressure. Given multiple risk factors for coronary artery disease, echocardiogram to evaluate LV function. Echo done and showed LVEF 45-50%, mild MR, trace TR, RVSP 21 mmHg. Post right pleural thoracentesis with 1.2 /liters of serosanguinous fluid taken out. Stress test done- LVEF 43% heterogenous activities and fixed, apical and inferior defects suggestive of cardiomyopathy. Symptoms improved. For cardiac catheterization tomorrow. NPO post midnight. Plan: No distress, denies chest pain For cardiac catheterization tomorrow NPO post midnight Controlled blood pressure Heart rate controlled On Cozaar 25 mg Daily,Toprol 200 mg daily, Nicoderm patch daily Detrol LA 2 mg daily, Hygroton 50 mg daily Continue current medications Continue current treatment Pulmonary on consult Lifestyle modification Weight reduction Smoking cessation, on Nicotine patch Discharge planning Will follow up Plan and treatment discussed with Dr. Landry
[2018-09-19] MEDS: Arformoterol 15 mcg/2 ml Inh Sol IH SCH ×2 (08:11→19:29)
[2018-09-19] MEDS: Budesonide 0.25 mg/2 ml Inhal Susp UD IH SCH ×2 (08:12→19:28)
[2018-09-19] MEDS: Tolterodine 2 mg ER Cap PO SCH (09:16)
[2018-09-19] MEDS: Metoprolol Succinate 100 mg XL Tab PO SCH (09:17)
[2018-09-19] MEDS: Pantoprazole 40 mg EC Tab PO SCH (09:21)
[2018-09-19] MEDS: Naproxen 550 mg Tab PO SCH ×2 (09:24→17:41)
--- NOTE | 2018-09-19 15:14 | PN ---
DATE: 09/19/2018 PULMONARY PROGRESS NOTE REFERRING PHYSICIAN: Matthew Rivers MD. SUBJECTIVE: The patient is seen this morning, lying in bed. No acute distress. Reports having occasional cough. Reports pleuritic pain is much better. No headache, rhinitis, shortness of breath, chest pain, abdominal pain, nausea, vomiting, diarrhea, leg pain, leg swelling reported. OBJECTIVE: VITAL SIGNS: Blood pressure 135/80, pulse 69, temperature 97.8, oxygen saturation 97% on room air. GENERAL: No acute distress. HEENT: Moist mucous membranes. Mallampati score of 4. Crowded airway. NECK: Supple. No JVD. LUNGS: Fair airflow bilaterally. CARDIOVASCULAR: S1, S2. ABDOMEN: Soft, nontender. No distention. No organomegaly. EXTREMITIES: No bilateral lower extremity edema. NEUROLOGIC: Awake, alert, verbal, follows commands. MEDICATIONS: Reviewed. Brovana 15 mcg every 12 hours, aspirin 81 mg daily, Pulmicort 0.25 mg inhalation every 12 hours, cefepime 1 g every 8 hours, chlorthalidone 15 mg daily, Plavix 75 mg daily, hydralazine 10 mg IV push every 6 hours p.r.n., Cozaar 100 mg daily, Toprol XL 200 mg daily, naproxen 550 mg twice a day, nicotine patch transdermal daily, Protonix 40 mg daily, Detrol LA 2 mg daily. LABORATORY DATA: Reviewed. Pleural fluid, Gram-stain shows no organism seen, no polymorphonuclear WBC observed. Body fluid preliminary shows no growth after [address] shows small right pleural effusion and loculated fluid in the right major and minor regions and subsegmental atelectasis in the right lower lobe. No focal consolidation, mass or nodules. IMPRESSION AND PLAN: Right pleural effusion, status post thoracentesis; partially treated community-acquired pneumonia. The patient was treated with antibiotics as outpatient prior to coming to ER. Cardiomyopathy, uncontrolled hypertension, obesity, suspected obstructive sleep apnea syndrome. During thoracentesis, serosanguineous fluid was extracted. Post thoracentesis CT showed no tumor. However, we still worry about malignancy with serosanguineous fluid could be trauma, infection, tumor, need to follow up closely. We will order TB Gold to be done on this patient. We will follow up with final report from fluid cytology. Gastric prophylaxis, sleep apnea precaution. Avoid nocturnal sedation. Sequential compression devices to bilateral lower extremities for deep venous thrombosis prophylaxis. Continued inhaled bronchodilators. This patient was seen and examined with Dr. Elliott. Discussed assessment and plan as described above. This patient was seen and examined with Foster Anderson, nurse practitioner. Discussed assessment and plan as described above. Thank you for this consult. We will follow with you. Foster Anderson APN Sunni Elliott MD
[2018-09-19 22:23] VITALS: O2SAT 99
[2018-09-20] MEDS: Cefepime 1gm in NS 100ml 1 GM/100 ML BAG IVPB SCH (05:48)
[2018-09-20] MEDS: Arformoterol 15 mcg/2 ml Inh Sol IH SCH (07:30)
[2018-09-20] MEDS: Budesonide 0.25 mg/2 ml Inhal Susp UD IH SCH (07:30)
--- NOTE | 2018-09-20 08:03 | CP.PCM.PN ---
Subjective - Date & Time of Evaluation Date of Evaluation: 09/20/18 Time of Evaluation: 06:45 - Subjective Subjective: Awake, alert, no distress, denies chest pain Reason for consultation and follow up: Cardiac evaluation of shortness of breath and right sided intermittent chest pressure especially when lying on the right side. History of hypertension, hyperlipidemia,GERD, anxiety, COPD, currently smokes 2 packs per day, post right thoracenthesis. Seen and examined by me and Dr. Landry Objective - Vital Signs/Intake and Output Vital Signs (last 24 hours): Temp Pulse Resp BP Pulse Ox 98.2 F 78 20 146/78 99 09/19/18 22:22 09/19/18 22:22 09/19/18 22:22 09/19/18 22:22 09/19/18 22:22 - Medications Medications: Current Medications Arformoterol Tartrate (Brovana) 15 mcg IH [id number] [facility] Last Admin: 09/20/18 07:30 Dose: 15 mcg Aspirin (Ecotrin) 81 mg PO DAILY [facility] Last Admin: 09/19/18 09:21 Dose: 81 mg Budesonide (Pulmicort Respules) 0.25 mg IH [id number] [facility] Last Admin: 09/20/18 07:30 Dose: 0.25 mg Chlorthalidone (Hygroton) 50 mg PO DAILY [facility] Last Admin: 09/19/18 09:17 Dose: 50 mg Clopidogrel Bisulfate (Plavix) 75 mg PO DAILY [facility] Last Admin: 09/19/18 09:21 Dose: 75 mg Hydralazine HCl (Apresoline) 10 mg IVP Q6 PRN PRN Reason: hypertension SBP above 170 Last Admin: 09/17/18 05:12 Dose: 10 mg Cefepime HCl (Maxipime 1gm) 1 gm in 100 mls @ 100 mls/hr IVPB Q8 [facility] Last Admin: 09/20/18 05:48 Dose: 100 mls/hr Losartan Potassium (Cozaar) 100 mg PO DAILY [facility] Last Admin: 09/19/18 14:33 Dose: 100 mg Metoprolol Succinate (Toprol Xl) 200 mg PO DAILY [facility] Last Admin: 09/19/18 09:17 Dose: 200 mg Naproxen (Anaprox Ds) 550 mg PO BID [facility] Last Admin: 09/19/18 17:41 Dose: 550 mg Nicotine (Nicoderm Cq) 1 patch TD DAILY [facility] Last Admin: 09/19/18 09:24 Dose: 1 patch Pantoprazole Sodium (Protonix Ec Tab) 40 mg PO DAILY [facility] Last Admin: 09/19/18 09:21 Dose: 40 mg Tolterodine Tartrate (Detrol La) 2 mg PO DAILY [facility] Last Admin: 09/19/18 09:16 Dose: 2 mg - Labs Labs: 09/17/18 10:20 09/17/18 07:00 PT 13.7 SECONDS (9.4-12.5) H 09/16/18 11:10 INR 1.21 09/16/18 11:10 APTT 41.9 Seconds (26.9-38.3) H 09/16/18 11:10 - Constitutional Appears: Non-toxic, No Acute Distress - Head Exam Head Exam: NORMAL INSPECTION, NORMOCEPHALIC - Eye Exam Eye Exam: Normal appearance Pupil Exam: NORMAL ACCOMODATION - ENT Exam ENT Exam: Mucous Membranes Moist, Normal Exam - Respiratory Exam Respiratory Exam: Clear to Ausculation Bilateral, NORMAL BREATHING PATTERN - Cardiovascular Exam Cardiovascular Exam: +S1, +S2 - GI/Abdominal Exam GI & Abdominal Exam: Soft, Normal Bowel Sounds - Extremities Exam Extremities Exam: Full ROM, Normal Capillary Refill - Neurological Exam Neurological Exam: Alert, Awake, Oriented x3 - Psychiatric Exam Psychiatric exam: Normal Affect, Normal Mood - Skin Skin Exam: Dry, Normal Color, Warm Assessment and Plan - Assessment and Plan (Free Text) Assessment: A 38 year old male morbidly obese who came in to the ER due to shortness of breath and right sided intermittent chest pressure especially when lying on the right side. He was seen by PMD a few days ago due to shortness of breath and upper respiratory infection was given antibiotics. Shortness of breath was not resolved after completing antibiotics. Right sided chest pressure relieved with Advil. He was also claimimg that he was referred to a Telemarketing Manager due to abnormal EKG and was supposed to have a stress test this weekend. History of hypertension, hyperlipidemia,GERD, anxiety, COPD, past surgical history of foot surgery, currently smokes 2 packs per day. Admits to social drinking occasionally. Right pleuritic pain due to moderate pleural effusion from CT scan. EKG showed sinus tachycardia, normal,no ischemia, Normal troponin and BNP. US of lower extremities negative for DVT. Rule out acute coronary syndrome. Moderate right pleural effusion. Atypical chest pain, Uncontrolled blood pressure. Given multiple risk factors for coronary artery disease, echocardiogram to evaluate LV function. Echo done and showed LVEF 45-50%, mild MR, trace TR, RVSP 21 mmHg. Post right pleural thoracentesis with 1.2 /liters of serosanguinous fluid taken out. Stress test done- LVEF 43% heterogenous activities and fixed, apical and inferior defects suggestive of cardiomyopathy. Symptoms improved. For cardiac catheterization today. NPO post midnight. Pleural fluid no growth after 24 hours. Plan: No distress, denies chest pain For cardiac catheterization today NPO post midnight Very nervous about procedure today, reassured and explain about procedure Controlled blood pressure Heart rate controlled On Cozaar 25 mg Daily,Toprol 200 mg daily, Nicoderm patch daily Detrol LA 2 mg daily, Hygroton 50 mg daily Continue current medications Continue current treatment Pulmonary on consult Lifestyle modification Weight reduction Smoking cessation, on Nicotine patch Discharge planning Further recommendations post cardiac cath Will follow up Plan and treatment discussed with Dr. Landry
[2018-09-20 08:18] LABS: BASO # 0.04 K/mm3 (0.0-2.0); BASO % 0.4 % (0.0-3.0); EOS # 0.7 (0.0-0.7); HEMOGLOBIN 14.1 g/dL (14.0-18.0); LYMPH # 1.5 (1.2-3.4); LYMPH % 15.2 % (22.0-35.0); MEAN CELL VOLUME 83.9 fl (80.0-105.0); MEAN CORPUSCULAR HEMOGLOBIN 28.7 pg (25.0-35.0); MEAN CORPUSCULAR HGB CONC 34.2 g/dl (31.0-37.0); MEAN PLATELET VOLUME 8.7 fl (7.0-11.0); MONO # 1.1 (0.1-0.6); MONO % 10.8 % (1.0-6.0); RBC 4.91 10^6/uL (3.5-6.1); RED CELL DISTRIBUTION WIDTH 13.5 % (11.5-14.5); WHITE BLOOD COUNT 9.7 10^3/uL (4.5-11.0)
[2018-09-20 08:25] LABS: INR 1.23; PROTHROMBIN TIME 13.9 SECONDS (9.4-12.5)
[2018-09-20 09:08] LABS: ALB/GLOB RATIO 1.2 (1.1-1.8); ALBUMIN 3.9 g/dL (3.0-4.8); ALT/SGPT 14 U/L (7-56); AST/SGOT 25 U/L (17-59); BLOOD UREA NITROGEN 18 mg/dL (7-21); CALCIUM 9.6 mg/dL (8.4-10.5); GFR NON-AFRICAN AMERICAN > 60
[2018-09-20] MEDS ORDERED: Lidocaine 2% Inj (20ml) ONE (09:14)
[2018-09-20] MEDS ORDERED: Iohexol 350mgl/ml 50 ML ONE (09:15)
[2018-09-20] MEDS ORDERED: Iohexol 350 MG/100 ML VIAL ONE (09:15)
[2018-09-20] MEDS ORDERED: Phenylephrine 10 mg/ml Inj ONE (09:15)
[2018-09-20] MEDS ORDERED: Nitroglycerin 50mg in D5W 50 MG/250 ML BOTTLE IV ONE (09:16)
[2018-09-20] MEDS ORDERED: Verapamil 2 ML ONE (09:22)
[2018-09-20] MEDS ORDERED: Potassium Chloride 20 mEq ER Tab PO ONE ×2 (09:25→12:30)
[2018-09-20] MEDS ORDERED: Midazolam 2 MG/2 ML VIAL ONE (09:58)
--- NOTE | 2018-09-20 10:12 | PN ---
DATE: 09/18/2018 SUBJECTIVE: The patient seen and examined, has an anxiety, questions about nuclear stress test. Seen by Cardiology for cardiac catheterization on Thursday. the patient has positive for chest pain on the right side worse with inspiration and his breathing is better. PHYSICAL EXAMINATION: VITAL SIGNS: Temperature , respirations 20, and saturation 95%. HEAD AND NECK: Normal. No JVD. No thyromegaly. CHEST: Clear. Better aeration on the right side. CARDIAC: First sound and second sound normal. ABDOMEN: Soft, obese, and nontender. EXTREMITIES: No edema. NEUROLOGIC: Normal. He has pleural fluid tap, which shows serosanguineous fluid, still pending results. LABORATORY STUDIES: BUN 10 and creatinine 0.6. CBC shows white count 14.1, hemoglobin , hematocrit , and platelets . IMPRESSION AND PLAN: 1. Status post pleural fluid tapping by Dr. Akbar Mcgee, 1.2 L drawn. The patient is doing better, the results still pending. 2. Hypertensive cardiomyopathy. The patient would be going for cardiac catheterization on Thursday and I discussed with the patient the nuclear stress test results and possible expectation from the cardiac catheterization. 3. Hypertension is improving, better control. We increased Cozaar to 100 mg. Continue chlorthalidone and continue Toprol-XL 200 once a day. . We will do cardiac catheterization Thursday. At this time, continue current therapy. The patient CT chest with no contrast. Matthew Rivers MD
--- NOTE | 2018-09-20 10:15 | PN ---
DATE: 09/17/2018 SUBJECTIVE: The patient was seen sitting on a chair, comfortable, no pain, no distress. Going after dinner for ____ of his right sided moderate pleural effusion. He has no other complaints ____ but he looks better, less anxious than yesterday and seems stable. PHYSICAL EXAMINATION: VITAL SIGNS: ____, The patient's blood pressure is still running rather high ____. HEAD AND NECK: Normal. No JVD. No thyromegaly. CHEST: Clear on left side and decreased breath sound on the right side. CARDIAC: First sound, second sound normal. ABDOMEN: Soft, obese and nontender. EXTREMITIES: No edema. NEUROLOGIC: . IMPRESSION: 1. . 2. weeks ago, however, the patient we will do pleuritic and diagnostic tapping. Discussed with Dr. Moy Rodriguez. . 3. Hypertension. The patient had a . 4. . PLAN: ____. Matthew Rivers MD
[2018-09-20] MEDS ORDERED: Bacitracin 500 Units/gm Oint Foilpak UD TOP ONE (10:32)
[2018-09-20] MEDS ORDERED: Sodium Chloride 0.9% 1,000 ML IV SCH (10:45)
--- NOTE | 2018-09-20 11:10 | CPOSTOP ---
DATE: 09/20/2018 CARDIOVASCULAR LAB POSTPROCEDURE NOTE PHYSICIAN: Sunni Landry MD ADMIN SECRETARY: ANGELA Alvarez. TYPE OF ANESTHESIA: Moderate conscious sedation, total 2 mg of Versed and 100 of fentanyl given periodically. Started 1 mg of Versed and 50 of fentanyl. PROCEDURE PERFORMED: Left heart catheterization. FINDINGS: Nonobstructive coronary artery disease, nonischemic cardiomyopathy. FINAL DIAGNOSES: Nonischemic cardiomyopathy and nonobstructive coronary artery disease. POST PROCEDURE CONDITION: The patient's condition is stable. VASCULAR ACCESS SITE: Left radial. CLOSURE DEVICE: TR-band. TOTAL RADIATION DOSE: 5524.2 milligray unit. TOTAL FLUORO TIME: 1.5 minutes. Sunni Landry MD
[2018-09-20] MEDS: Tolterodine 2 mg ER Cap PO SCH (11:49)
[2018-09-20] MEDS: Pantoprazole 40 mg EC Tab PO SCH (11:50)
[2018-09-20] MEDS: Naproxen 550 mg Tab PO SCH (11:51)
[2018-09-20 11:53] VITALS: TEMP 98
[2018-09-20] MEDS: Metoprolol Succinate 100 mg XL Tab PO SCH (11:58)
[2018-09-20 14:16] VITALS: RESP 18
[2018-09-20 14:17] VITALS: BP 154/78; PULSE 79
--- NOTE | 2018-09-20 15:45 | PN ---
DATE: 09/20/2018 PULMONARY PROGRESS NOTE REFERRING PHYSICIAN: Matthew Rivers MD SUBJECTIVE: The patient seen in room, family at bedside. No acute distress. No overnight events reported. No headache, rhinitis, cough, shortness of breath, chest pain, abdominal pain, nausea, vomiting, diarrhea, leg pain, or leg swelling reported. The patient is status post left heart catheterization. OBJECTIVE VITAL SIGNS: Blood pressure 119/50, pulse 84, temperature 98, oxygen saturation 99% on room air. GENERAL: No acute distress. HEENT: Moist mucous membranes. Mallampati score of 4. Crowded airway. NECK: Supple. No JVD. LUNGS: Fair airflow bilaterally. CARDIOVASCULAR: S1 and S2. ABDOMEN: Soft, nontender. No distension. No organomegaly. EXTREMITIES: No bilateral lower extremity edema. NEUROLOGIC: Awake, alert, verbal, follows commands. MEDICATIONS: Reviewed. Brovana 15 mcg every 12 hours, aspirin 81 mg daily, Pulmicort 0.25 mg inhalation every 12 hours, chlorthalidone 50 mg daily, hydralazine 10 mg IV push every 6 hours p.r.n., Cozaar 100 mg daily, metoprolol succinate 200 mg daily, naproxen 550 mg twice a day, nicotine patch transdermal daily, Protonix 40 mg daily, sodium chloride 0.9% 1000 mL at 100 mL per hour, Detrol LA 2 mg p.o. daily. LABORATORY DATA: Reviewed. WBC 9.7, RBC 4.91, hemoglobin 14.1, hematocrit 41.2, platelets 343. PT 13.9, INR 1.23. Sodium 141, potassium 3, chloride 102, carbon dioxide 30, anion gap 12, BUN 18, creatinine 0.6, GFR greater than 60, random glucose 101, calcium 9.6, phosphorus 3.8, magnesium 1.8, total bilirubin 0.4. AST 25, ALT 14, alkaline phosphatase 86, total protein 7.2, albumin 3.9, globulin 3.3, albumin-globulin ratio 1.2. Pleural fluid culture preliminary, no growth after 2 days. TB Gold pending. IMPRESSION AND PLAN: Right pleural effusion, status post thoracentesis; partially treated community-acquired pneumonia; cardiomyopathy; uncontrolled hypertension; obesity; suspected sleep apnea syndrome. The patient had thoracentesis done, which showed serosanguineous fluid. Post thoracentesis CT showed no tumor; however, we still worry about malignancy with serosanguineous fluid. Waiting fluid cultures. TB Gold test pending. The patient had left heart catheterization done, which showed nonobstructive coronary artery disease and nonischemic cardiomyopathy. Gastric prophylaxis, deep venous thrombosis prophylaxis with SCDs to bilateral lower extremities, sleep apnea precautions. Avoid nocturnal sedation. Continue inhaled bronchodilators. Encourage smoking cessations. The patient verbalizes understanding. The patient will need frequent follow up chest x-rays to monitor pleural effusion. We recommend the patient have sleep study and full pulmonary function test as outpatient. The patient was seen and examined with Dr. Elliott. Discussed assessment and plan as described above. The patient was seen and examined with Foster Anderson, nurse practitioner. Discussed assessment and plan as described above. Thank you for this consult. We will follow with you. Foster Anderson APN Sunni Elliott MD
--- NOTE | 2018-09-20 17:04 | CARD ---
APPROVED REPORT Date of service: 09/20/2018 Procedure(s) performed: Left Heart Catheterization HISTORY The patient is a 38 year-old male with a history of : chronic lung disease, hypertension , dyslipidemia , morbid obesity, admitted with SOB and chest apin and abnormal stress test.. INDICATION The indication(s) include : positive stress test. CASE TECHNIQUE The patient was brought electively to the Cardiac Catheterization Laboratory in a fasting state and was prepped and draped in a sterile manner. The left wrist was infiltrated with 2% Lidocaine subcutaneous anesthesia. A 6FR GLIDESFarFariaTH ACCESS KIT sheath was inserted into the left radial artery without difficulty. Coronary angiography was performed using coronary diagnostic catheters. The left coronary system was accessed and visualized with a Diagnostic,5F JR 4 CATH DXT 100 CM catheter. The right coronary system was accessed and visualized with a Diagnostic ,5F JL 4 CATH DXT 100 CM catheter. The left ventricle was accessed and visualized with a Diagnostic,5F JR 4 CATH DXT 100 CM catheter. Left ventricular/Aortic Valve gradient assessed on pullback. Left ventriculogram was performed in KLEIN projection. Closure device was deployed with a Fr TR Band (Large) without any complications. The patient tolerated the procedure well and there were no complications associated with the procedure. Vessel Analysis The patient's coronary anatomy is co-dominant. The left main coronary artery is a large size vessel without significant stenosis. The left main bifurcates to the left anterior descending and circumflex. The left anterior descending artery is a medium size vessel without significant stenosis. The first diagonal branch is a large size vessel without significant stenosis. The circumflex artery is a large size vessel without significant stenosis. The first obtuse marginal branch is a large size vessel with intimal irregularities and without significant stenosis. The left posterior descending artery is a medium size vessel with intimal irregularities and without significant stenosis. The right coronary artery is a large size vessel with intimal irregularities. The right posterior descending artery is a large size vessel with intimal irregularities and without significant stenosis. The right posterolateral branch is a medium size vessel with diffuse calcification noted throughout this vessel and without significant stenosis. Left Ventricle The left ventricle is borderline in size with mildly decreased contractility. Non-Ischemic cardiomyopathy. The left ventricular ejection fraction is estimated to be 40-45%. The left ventricular end diastolic pressure is 12 mmHg. There was no gradient across the aortic valve upon pullback. Conclusion Normal coronaries Non Ischemic CMP, possibly secondary to ETOH related. EF-40-45%, EDP-12 mmof hg. Recommendations Smoking Cessation Aggressive Medical TherapyCardiac Risk Reduction Program Weight Loss Reduction Program Complete Abstinence of ETOH. Re-assess LV Fx in 3-6 months if remains Less than 35%, consider AICD. Interim JENNIFER, Beta roberto +/_ diuretics. CC; Quin Nelson MD.
[2018-09-21 02:49] LABS: TOTAL PROTEIN PLEURAL FLUID 4.8 g/dL
--- NOTE | 2018-09-21 20:11 | DS ---
HISTORY OF PRESENT ILLNESS: The patient had a cardiac catheterization, shows nonobstructive coronary artery disease, had been stable. Blood pressure seems better. Pleural fluid was tapped and still final results not yet. The patient otherwise feeling better. No short of breath. No chest pain on the right side anymore, he seems improving and stable. The patient during hospitalization seen by Pulmonary consult, Dr. Elliott; seen by Cardiology, Dr. Landry and seen by Infectious Disease, Dr. Morales. The patient's condition seems stable. Already blood pressure controlled and pleural fluid tap done is old, still need followup x-rays as outpatient, and the cardiac cath showed non-ischemic cardiomyopathy. The patient has been advised to follow up on hypertension control, weight loss, smoking cessation, and to follow up on his pleural fluid results and serial chest x-ray. PHYSICAL EXAMINATION: VITAL SIGNS: On discharge, which is 09/21/2018, his blood pressure was 154/78, heart rate 79, temperature 98, respirations 18. HEAD AND NECK: Normal. No JVD. No thyromegaly. CHEST: Clear bilaterally. CARDIAC: First sound and second sound normal. ABDOMEN: Obese, nontender. EXTREMITIES: No edema. NEUROLOGIC: Normal. LABORATORY DATA: White count 9.7, hemoglobin 14.1, hematocrit 41.2, and platelets 343. Chemistry; sodium 141, potassium 3 which was corrected, chloride 102, bicarb 30, BUN 18, creatinine 0.6. Chemistry including calcium, phosphorus, magnesium, and liver function test was normal. TSH was 3.8. His LDL cholesterol 103, total cholesterol 175, triglycerides 215. The patient was discharged to be followed up as outpatient. DISCHARGE DIAGNOSES 1. Chest pain, noncardiac. 2. Pleuritic chest pain improved. 3. Pleural effusion, [id number]. 4. Chronic obstructive pulmonary disease. 5. Non-ischemic cardiomyopathy. 6. Hypertension, poorly controlled. 7. Morbid obesity. 8. Tobacco abuse, tobacco use disorder. PLAN: The patient needs to continue controlling his high risk factors as an outpatient. The patient will be sending on inhaled bronchodilators, Symbicort twice a day, while giving Cozaar 100 mg, and chlorthalidone 50 mg. Also he will get his Toprol XL 200 mg, which seems to be controlling his blood pressure. The patient had received enough antibiotics and seems doing well. Continue aspirin 81 mg, continue nicotine patch. Followup as outpatient. Matthew Rivers MD
== END 2018-09-20 17:52 | disposition home or self-care (01) | DRG 186 ==
LOC: ED 07:07 → ERH 10:56 → 5RSO 16:27 → OBSVTOIN 09-16 17:41 → 2RSO 09-20 10:39
PROVIDERS: ADMIT Internal Medicine; ATTEND Internal Medicine
PROC: 0W993ZZ Drainage of Right Pleural Cavity, Percutaneous Approach (ICD-10-PCS; principal; 2018-09-17)
PROC: BB4BZZZ Ultrasonography of Pleura (ICD-10-PCS; 2018-09-17)
PROC: 4A023N7 Measurement of Cardiac Sampling and Pressure, Left Heart, Percutaneous Approach (ICD-10-PCS; 2018-09-20)
PROC: B2151ZZ Fluoroscopy of Left Heart using Low Osmolar Contrast (ICD-10-PCS; 2018-09-20)
PROC: B2111ZZ Fluoroscopy of Multiple Coronary Arteries using Low Osmolar Contrast (ICD-10-PCS; 2018-09-20)
DX: J90 Pleural effusion, not elsewhere classified (principal); J18.9 Pneumonia, unspecified organism; J44.0 Chronic obstructive pulmonary disease with (acute) lower respiratory infection; Z68.42 Body mass index [BMI] 45.0-49.9, adult; I43 Cardiomyopathy in diseases classified elsewhere; I11.9 Hypertensive heart disease without heart failure; I25.10 Atherosclerotic heart disease of native coronary artery without angina pectoris; F17.210 Nicotine dependence, cigarettes, uncomplicated; E78.00 Pure hypercholesterolemia, unspecified; E66.01 Morbid (severe) obesity due to excess calories; E78.5 Hyperlipidemia, unspecified; F41.9 Anxiety disorder, unspecified; G47.33 Obstructive sleep apnea (adult) (pediatric); J06.9 Acute upper respiratory infection, unspecified; K21.9 Gastro-esophageal reflux disease without esophagitis